=== PATIENT | male | born 2000 | race Caucasian/White ===

== ENCOUNTER 2020-09-03 20:43 | Emergency (ER) | payer OTHER, SELFPAY | END 2020-09-03 23:49 | disposition left against medical advice (07) | PROVIDERS: Emergency Provider Emergency Medicine | DX: M79.606 Pain in leg, unspecified (principal) ==

== ENCOUNTER 2020-09-06 19:52 | Emergency (ER) | payer OTHER, SELFPAY ==
[2020-09-06 20:03] VITALS: BP 125/69; PULSE 65; RESP 18; TEMP 37.4; O2SAT 100; BMI 18.8
--- NOTE | 2020-09-06 20:30 | ED.LOWEXIN ---
HPI - Extremity Injury (Lower) General Chief Complaint: Extremity Injury, Lower Stated Complaint: Knee pain Time Seen by Provider: 09/06/20 20:30 History of Present Illness HPI Narrative: Complains of left renee pain after banging his renee while skateboarding, no swelling, no weakness, no other injury Related Data Previous Rx's Medication Instructions Recorded ibuprofen 600 mg PO Q6H PRN #20 tab 09/06/20 Allergies Allergy/AdvReac Type Severity Reaction Status Date / Time No Known Allergies Allergy Verified 09/06/20 20:08 [No Known Allergies*] Review of Systems Review of Systems: Positive left anterior lower leg pain negatives are no dizziness no weakness no head injury no headache no neck pain no back pain no numbness no weakness no tingling Yes all other systems are reviewed and are negative [facility] Past Medical History Source: nursing notes reviewed Medical History (Updated 09/07/20 @ 00:00 by Background Daemon) No known health problems Social History Social History Advance Directives: No Advance Directives Information Provided: Yes Physical Exam Vital Signs: Vital Signs: Last Vital Signs Temp 99.4 F 09/06/20 20:03 Pulse 65 09/06/20 20:03 Resp 18 09/06/20 20:03 BP 125/69 09/06/20 20:03 Pulse Ox 100 09/06/20 20:03 Body Mass Index 18.8 General appearance no distress comfortable relax cooperative Head is normocephalic atraumatic Neck is supple nontender Chest wall nontender Extremities full range of motion x4 The left renee area, anterior lower leg has a small abrasion, there is mild anterior tenderness there is full range of motion in all joints he is walking with a very mild limp he can stand on 1 leg he could hop on 1 leg he can jump, no evidence of fracture Neuro no focal deficit Course Course Course Narrative: Patient believes he is up-to-date on tetanus shot will check with his primary physician Exam is consistent with a contusion no evidence of fracture or severe injury Discharge Plan Discharge Clinical Impression: Contusion of left leg Patient Disposition: Home, Self-Care Additional Instructions: No sign of broken bone or any dangerous injury You did have a small abrasion which we usually give a tetanus shot As you are not sure if you are up-to-date check with your doctor A contusion pain will usually get better within several days Prescriptions: New ibuprofen 600 mg tablet 600 mg PO Q6H PRN (Reason: pain) Qty: 20 RF: 0 Interventions: ED Discharge Assessment Last Done: 09/06/20 20:52 Discharge Date/Time: 09/06/20 20:53
== END 2020-09-06 20:53 | disposition home or self-care (01) ==
PROVIDERS: Emergency Provider Internal Medicine
DX: S80.12XA Contusion of left lower leg, initial encounter (principal); S80.812A Abrasion, left lower leg, initial encounter; Y93.51 Activity, roller skating (inline) and skateboarding; Y92.414 Local residential or business street as the place of occurrence of the external cause; Y99.9 Unspecified external cause status; X58.XXXA Exposure to other specified factors, initial encounter; Y92.9 Unspecified place or not applicable
CPT/HCPCS: 99283

== ENCOUNTER 2020-10-22 13:43 | Emergency (ER) | payer OTHER, SELFPAY ==
--- NOTE | ~2020-10-22 | XR_ITS ---
EXAMINATION: XR ELBOW, LEFT CLINICAL INFORMATION: Pain left elbow COMPARISON: None TECHNIQUE: AP, lateral, and oblique views of the left elbow. FINDINGS: There is no fracture, dislocation, or destructive process. No joint narrowing or erosive change. No visible capsular effusion. No gas tracking in the soft tissues. Bony mineralization appears normal. No periostitis. XR/XR elbow LT 2V IMPRESSION: Normal left elbow.
[2020-10-22 15:44] VITALS: BP 120/78; PULSE 50; RESP 16; TEMP 36.8; O2SAT 99; BMI 18.8
--- NOTE | 2020-10-22 16:31 | ED_ITS ---
HPI - Extremity Problem General Chief complaint: Extremity Injury, Upper Stated complaint: L ELBOW INJ Time Seen by Provider: 10/22/20 16:30 Source: patient Mode of arrival: ambulatory Limitations: no limitations History of Present Illness HPI Narrative: Patient fell while skateboarding 2 days ago complaining of pain in the left elbow, pain mostly localized in biceps area is diffuse no bony deformity able to move his arm very well no other injuries Related Data Previous Rx's Medication Instructions Recorded ibuprofen 600 mg PO Q6H PRN #20 tab 09/06/20 Allergies Allergy/AdvReac Type Severity Reaction Status Date / Time No Known Allergies Allergy Verified 09/06/20 20:08 [No Known Allergies*] Review of Systems Review of Systems: Yes all other systems are reviewed and are negative [facility] Past Medical History Medical History No known health problems Social History Social History Alcohol intake: never Smoking Status: Never smoker Use of substances other than those prescribed or required for medical reasons: No Advance Directives: No Advance Directives Information Provided: Yes Physical Exam Vital Signs: Vital Signs: Last Vital Signs Temp 98.3 F 10/22/20 15:44 Pulse 50 10/22/20 15:44 Resp 16 10/22/20 15:44 BP 120/78 10/22/20 15:44 Pulse Ox 99 10/22/20 15:44 Body Mass Index 18.8 Const: General: comfortable and no acute distress Extrem: Shoulder/upper arm images: 1. Diffuse tenderness left elbow no bony deformity range of movement is full neurovascular intact MDM - Extremity (Nontraumatic) MDM Narrative Medical decision making narrative: Patient with contusion to left elbow x-ray negative for any fracture will discharge patient home on ibuprofen Discharge Plan Discharge Clinical Impression: Contusion of elbow, left Qualifiers: Encounter type: initial encounter Qualified Code(s): S50.02XA - Contusion of left elbow, initial encounter Patient Disposition: Home, Self-Care Instructions: Contusion in Adults (ED) Additional Instructions: Ibuprofen for pain, x-rays negative for fracture, rest to the left elbow follow- up PCP if any concern Prescriptions: No Action ibuprofen 600 mg tablet 600 mg PO Q6H PRN (Reason: pain) Qty: 20 RF: 0
[2020-10-22] MEDS: Ibuprofen 600 MG TABLET PO (16:49)
== END 2020-10-22 16:53 | disposition home or self-care (01) ==
PROVIDERS: Emergency Provider Internal Medicine
DX: S50.02XA Contusion of left elbow, initial encounter (principal); M25.522 Pain in left elbow; Y93.51 Activity, roller skating (inline) and skateboarding; Y92.410 Unspecified street and highway as the place of occurrence of the external cause; Y99.9 Unspecified external cause status; Z79.899 Other long term (current) drug therapy
CPT/HCPCS: 73070; 99284

== ENCOUNTER 2022-05-14 21:46 | Emergency (ER) | payer OTHER, SELFPAY ==
--- NOTE | ~2022-05-14 | XR_ITS ---
Examination: XR hand wrist RT Indication: fall, pain x 1 month Comparison: 03/27/2019 Technique: 4 views of the right hand and wrist Findings: Bones are normal anatomic alignment with no acute fracture or dislocation seen. Carpal bones are normal alignment particular with no obvious trabecular or cortical irregularity in the region of the scaphoid bone. Overall the appearance is similar to the 2019 study XR/XR hand wrist RT Impression: No acute fracture or dislocation. Overall the appearance is similar to the 2019 study.
[2022-05-14 22:04] VITALS: BP 116/59; PULSE 60; RESP 16; TEMP 36.6; O2SAT 99; BMI 18.8
--- NOTE | 2022-05-14 22:22 | ED_ITS ---
HPI - Extremity Problem General Chief complaint: Extremity Injury, Upper Stated complaint: wrist pain, injury over a month ago Time Seen by Provider: 05/14/22 22:10 Source: patient Mode of arrival: ambulatory Limitations: no limitations History of Present Illness HPI Narrative: Right wrist pain for one month. candice fell on wrist on outstretched hands a month ago. patient states ever since he has pain on wirst on movement. patient denies any new trauma. Patient denies any headache, nausea, vomitting, redness, swelling, red streaks, fever, chills, chest pain, shortenss, weakness, or any other concerning symptoms. Related Data Previous Rx's Medication Instructions Recorded ibuprofen 600 mg tablet 600 mg PO Q6H PRN pain #20 tabs 09/06/20 naproxen 500 mg tablet 500 mg PO BID PRN pain 10 days #20 05/14/22 tabs prednisone 20 mg tablet 40 mg PO DAILY 5 days #10 tabs 05/14/22 Allergies Allergy/AdvReac Type Severity Reaction Status Date / Time No Known Allergies Allergy Verified 09/06/20 20:08 [No Known Allergies*] Review of Systems Review of Systems: Right wrist pain Yes all other systems are reviewed and are negative [facility] Past Medical History Medical History No known health problems Social History Social History Alcohol intake: never Advance Directives: No Advance Directives Information Provided: No Physical Exam Vital Signs: Vital Signs: Last Vital Signs Temp 97.8 F 05/14/22 22:04 Pulse 60 05/14/22 22:04 Resp 16 05/14/22 22:04 BP 116/59 L 05/14/22 22:04 Pulse Ox 99 05/14/22 22:04 O2 Del Method 05/14/22 22:04 BMI result Body Mass Index 18.8 Const: General: cooperative, healthy appearing, comfortable, no acute distress, well developed, alert, awake and Physically active Orientation/consciousness: oriented to person, oriented to place, oriented to time and patient oriented x3 HEENT: Head: Yes normal to inspection, Yes No palpable skull fracture present, Yes normocephalic, Yes atraumatic and No abrasion Eyes: General: appearance normal, both eyes and all related structures Neck: Neck: Yes normal visual inspection, Yes full ROM, Yes no lymphadenopathy, Yes no meningeal signs, Yes trachea midline, Yes supple, No anterior neck swelling and No tender Chest: Chest palpation & inspection: normal inspection of the chest and normal palpation of entire chest wall Resp: Effort & Inspection: normal respiratory effort and able to speak in complete sentences Auscultation: clear to auscultation bilaterally Cardio: Jugular venous distension: no JVD Heart sounds: S1 normal heart sound present and S2 normal heart sound present GI: Inspection: Yes normal to inspection and No abdominal wall ecchymosis Palpation (GI): Soft to palpation, not firm, nontender, no guarding and not rigid : General: No CVA tenderness and Yes no CVA tenderness Back/Spine/Pelvis: Back: no CVA tenderness, No CVA tenderness and No back tenderness Skin: General skin exam: no rashes or lesions noted and elasticity normal Neuro: General: oriented to person, oriented to place, oriented to time, patient oriented x3, gait normal, tone normal, Normal light touch and pain sensation, no meningeal signs, no focal motor deficits and CN's II-XI intact bilaterally Extrem: General: Yes normal to inspection and Yes full ROM Hand/finger images: 1. Tenderness on palpation. negative for ecchymosis, rednes s, swelling, red streakes, fever, or chills. MOtor, neuro, and vascular exam is intact. Psych: Appearance: grossly normal, well kempt and not disheveled Course Course Course Narrative: Xray ordered Reevaluation(s) Reevaluation #1: Pre negative for fracture. Patient placed in cock-up splint and told to follow- up with primary care or orthopedic for MRI. Time: 23:04 Discharge Plan Discharge Clinical Impression: Sprain and strain of wrist Patient Disposition: Home, Self-Care Instructions: Sprain (ED), Wrist Sprain (ED) Additional Instructions: Yet x-rays came back normal. Follow-up with primary care or orthopedic if he still having pain. Return to the ED immediately for any swelling, redness, blue black discoloration, red streaks, numbness/tingling, or any other concerning symptoms. Prescriptions: New naproxen 500 mg tablet 500 mg PO BID PRN (Reason: pain) 10 Days Qty: 20 0RF prednisone 20 mg tablet 40 mg PO DAILY 5 Days Qty: 10 0RF No Action ibuprofen 600 mg tablet 600 mg PO Q6H PRN (Reason: pain) Qty: 20 0RF [place]: [facility] [place] [facility] [place] Group] (Wrist sprain. may need MRI) Stand Alone Forms: Work/School Release Interventions: ED Discharge Assessment Last Done: 05/15/22 00:58 Discharge Date/Time: 05/15/22 00:58 Print Language: Danish
== END 2022-05-15 00:58 | disposition home or self-care (01) ==
PROVIDERS: Emergency Provider Emergency Medicine
DX: M25.531 Pain in right wrist (principal); S63.501D Unspecified sprain of right wrist, subsequent encounter; S66.911D Strain of unspecified muscle, fascia and tendon at wrist and hand level, right hand, subsequent encounter; W19.XXXD Unspecified fall, subsequent encounter
CPT/HCPCS: 73110; 73130; 99282; 99283

== ENCOUNTER 2022-08-01 21:23 | Emergency (ER) | payer OTHER, SELFPAY ==
--- NOTE | ~2022-08-01 | XR_ITS ---
Examination: XR hand wrist RT Indication: injury,pain Comparison: 05/14/2022 Technique: 3 views of the right hand and wrist Findings: Bones are in normal anatomic alignment. No acute fracture or dislocation seen. No bony degenerative or destructive changes. No radiopaque foreign body or soft tissue gas. XR/XR hand wrist RT Impression: No acute fracture or dislocation.
[2022-08-01 21:39] VITALS: BP 126/77; PULSE 69; RESP 18; TEMP 37.1; O2SAT 98; BMI 18.0
--- NOTE | 2022-08-01 23:34 | ED.EXTPRO ---
HPI - Extremity Problem General Chief complaint: Extremity Injury, Upper <ASHLEY Napoles Last Filed: 08/01/22 23:47> Stated complaint: bump in head/ wrist pain <ASHLEY Napoles Last Filed: 08/01/22 23:47> Time Seen by Provider: 08/01/22 22:52 <ASHLEY Napoles Last Filed: 08/01/22 23:47> Source: patient <ASHLEY Napoles Last Filed: 08/01/22 23:47> Mode of arrival: ambulatory <ASHLEY Napoles Last Filed: 08/01/22 23:47> Limitations: no limitations <ASHLEY Napoles Last Filed: 08/01/22 23:47> History of Present Illness HPI Narrative: This is a 22-year-old male no significant medical history presenting with wrist pain since February and a lump on his head for the past year that comes and goes. 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 He reports that he has 1 lump on his head that is always present and at times he gets other smaller bumps he tells me his mom gets this with certain products and gets a rash he thinks this may be the same thing. He tells me it does not hurt, he just knows it is there and wants to get it checked out. Patient denies headache, vision changes, dizziness, weakness, nausea, vomiting, fevers, chills, chest pain, shortness of breath, abdominal pain, numbness and tingling. Has not seen orthopedics as PCP or Dermatology for any of these concerns. <ASHLEY Napoles Last Filed: 08/01/22 23:47> Related Data Home medications: Previous Rx's Medication Instructions Recorded ibuprofen 600 mg tablet 600 mg PO Q6H PRN pain #20 tabs 09/06/20 naproxen 500 mg tablet 500 mg PO BID PRN pain 10 days #20 05/14/22 tabs prednisone 20 mg tablet 40 mg PO DAILY 5 days #10 tabs 05/14/22 <ASHLEY Napoles - Last Filed: 08/01/22 23:47> Allergies/Adverse reactions: Allergies Allergy/AdvReac Type Severity Reaction Status Date / Time No Known Allergies Allergy Verified 08/01/22 21:44 [No Known Allergies*] <ASHLEY Napoles - Last Filed: 08/01/22 23:47> Review of Systems Review of Systems: Constitutional : No Weight loss, No Fever, No Chills, No Fatigue, No Malaise ENT/Mouth : No sore throat, No Rhinorrhea Eyes: No Eye Pain, No Swelling, No Redness Cardiovascular : No Chest Pain, No SOB, No Dyspnea on Exertion, No Orthopnea, No Edema, No Palpitations Respiratory : No Cough, No Sputum, No Wheezing Gastrointestinal : No Nausea, No Vomiting, No Diarrhea, No Constipation, No abdominal Pain, No Hematochezia, No Melena Genitourinary : No Dysuria, No Urinary Frequency, No Hematuria, Musculoskeletal : + joint pain, No Myalgias, No Joint Swelling Skin : No Skin Lesions, No rash Neuro : No Weakness, No Numbness, No Dizziness, No Headache Psych : No Anxiety/Panic, No Depression All other systems reviewed and are negative <ASHLEY Napoles - Last Filed: 08/01/22 23:47> Yes all other systems are reviewed and are negative <ASHLEY Napoles - Last Filed: 08/01/22 23:47> PMF[facility] Past Medical History Attestation statement: The following information was validated with the patient. <ASHLEY Napoles - Last Filed: 08/01/22 23:47> Source: old records reviewed and nursing notes reviewed <ASHLEY Napoles - Last Filed: 08/01/22 23:47> Medical History: Medical History No known health problems <ASHLEY Napoles Last Filed: 08/01/22 23:47> Social History Social History: Social History Alcohol intake: never Advance Directives: No Advance Directives Information Provided: Yes <ASHLEY Napoles - Last Filed: 08/01/22 23:47> Physical Exam Vital Signs: Vital Signs: Last Vital Signs Temp 98.8 F 08/01/22 21:39 Pulse 69 08/01/22 21:39 Resp 18 08/01/22 21:39 BP 126/77 08/01/22 21:39 Pulse Ox 98 08/01/22 21:39 O2 Del Method 08/01/22 21:39 BMI result Body Mass Index 18.0 vss <ASHLEY Napoles - Last Filed: 08/01/22 23:47> Vital Signs: Last Vital Signs Temp 98.8 F 08/01/22 21:39 Pulse 69 08/01/22 21:39 Resp 18 08/01/22 21:39 BP 126/77 08/01/22 21:39 Pulse Ox 98 08/01/22 21:39 O2 Del Method 08/01/22 21:39 BMI result Body Mass Index 18.0 <Chepe Kaufman MD - Last Filed: 08/01/22 23:52> Appearance: Alert.? Oriented X3.? No acute distress.? Head: Normocephalic, atraumatic, no step-offs or deformities Eyes: Pupils equal, round and reactive to light.? CVS: Normal heart rate and rhythm.? Pulses normal.? Respiratory: No respiratory distress.? Breath sounds normal.? Abdomen: Soft and nontender.? Skin: Skin warm and dry.? Normal skin color.? Normal skin turgor.? Extremities:5/5 strength to bilateral upper and lower extremities. 2+ radial pulses equal bilateral. Capillary refill less than 2 seconds equal bilateral. No wrist drop. Full range of motion pain-free to bilateral wrists and fingers. No pain overlying the anatomical snuffbox bilaterally Neuro: Oriented X 3.? No motor deficit.? No sensory deficit. CN 2-12 intact <ASHLEY Napoles - Last Filed: 08/01/22 23:47> Course Reevaluation(s) Reevaluation #1: X-ray of hand/wrist on the right with no acute fractures or dislocations. Wanted to provide a Velcro volar splint for comfort however patient tells me has been at home and he will begin to wear it. I did advise him to follow-up with his PCP for bumps on head he will likely require Dermatology follow-up there is no evidence of abscess on his head at this time therefore no further intervention. Will have them follow-up with orthopedics. Educated patient on diagnosis and treatment plan, answered all question, patient verbalizes understanding. At this time patient will be discharged home, advised to return with new or worsening symptoms. Educated on worrisome signs and symptoms and when to return. At this time I feel comfortable discharge home. <ASHLEY Napoles - Last Filed: 08/01/22 23:47> Time: 23:42 <ASHLEY Napoles - Last Filed: 08/01/22 23:47> Medical Decision Making Medical Decision Making [facility] Narrative: [id number] 22-year-old male presents with complaints of bump on head for the past year and right wrist injury that occurred in February still bothering him. Physical exam essentially benign. Likely sprain/strain, unlikely fracture, dislocation, no signs of neurovascular compromise or threatened limb. Unlikely acute ligament or tendon tear. I was unable to identify any bumps on patient's head patient tells me that some of them, go, this could be contact dermatitis or psoriasis or sebaceous cyst. Unlikely stroke, posterior stroke Plan at this time discharge patient home with Ortho follow-up. <ASHLEY Napoles - Last Filed: 08/01/22 23:47> Differential Diagnosis Differential Diagnoses: The differential diagnosis associated with the presentation includes <ASHLEY Napoles - Last Filed: 08/01/22 23:47> Likely sprain/strain, unlikely fracture, dislocation, no signs of neurovascular compromise or threatened limb. Unlikely acute ligament or tendon tear. I was unable to identify any bumps on patient's head patient tells me that some of them, go, this could be contact dermatitis or psoriasis or sebaceous cyst. Unlikely stroke or posterior stroke <ASHLEY Napoles Last Filed: 08/01/22 23:47> Admission/Observation Consideration of admission/observation: Escalation of care including admission/observation considered <ASHLEY Napoles Last Filed: 08/01/22 23:47> Independent Interpretation I performed an independent interpretation of an: Plain X-Ray (Unremarkable) <ASHLEY Napoles - Last Filed: 08/01/22 23:47> Core Measures AMI core measures followed: Yes <ASHLEY Napoles - Last Filed: 08/01/22 23:47> Measure exclusions: not indicated <ASHLEY Napoles - Last Filed: 08/01/22 23:47> Attestation Attending Attestation: I reviewed DICE DEALER/PA/Resident note, assessment and plan. I agree with the documentation, assessment and plan unless otherwise stated. <Chepe Kaufman MD - Last Filed: 08/01/22 23:52> Critical Care Time Critical Care Time Critical Care Time: No <ASHLEY Napoles - Last Filed: 08/01/22 23:47> Discharge Plan Discharge Clinical Impression: Sprain and strain of wrist, Head lump <ASHLEY Napoles - Last Filed: 08/01/22 23:47> Patient Disposition: Home, Self-Care <ASHLEY Napoles - Last Filed: 08/01/22 23:47> Instructions: Wrist Injury (ED), Sprain (ED) <ASHLEY Napoles - Last Filed: 08/01/22 23:47> Additional Instructions: Take your medications as prescribed. If you were prescribed antibiotics today, it is important that you take your medication to their entirety, do not skip any doses, do not finish them early. Follow-up with your primary care provider this week. Please follow-up with the orthopedic team. Please wear wrist splint as indicated. Rest, ice, compress and elevate extremity. Return to the emergency department with new or worsening symptoms. Such as fevers, chills, chest pain, shortness of breath, nausea, vomiting, dizziness, headache, vision changes, lethargy In case of emergency call 911 <ASHLEY Napoles - Last Filed: 08/01/22 23:47> Prescriptions: No Action ibuprofen 600 mg tablet 600 mg PO Q6H PRN (Reason: pain) Qty: 20 0RF naproxen 500 mg tablet 500 mg PO BID PRN (Reason: pain) 10 Days Qty: 20 0RF prednisone 20 mg tablet 40 mg PO DAILY 5 Days Qty: 10 0RF <ASHLEY Napoles - Last Filed: 08/01/22 23:47> Referrals: [facility] [place] [facility] [Provider Group] - 2 days Sarah Guerra MD [Primary Care Provider] - 2 days <ASHLEY Napoles - Last Filed: 08/01/22 23:47> Stand Alone Forms: Work/School Release <ASHLEY Napoles - Last Filed: 08/01/22 23:47>
== END 2022-08-01 23:58 | disposition home or self-care (01) ==
PROVIDERS: Emergency Provider Emergency Medicine; PCP Pediatrics
DX: R22.0 Localized swelling, mass and lump, head (principal); S63.501A Unspecified sprain of right wrist, initial encounter; S66.911A Strain of unspecified muscle, fascia and tendon at wrist and hand level, right hand, initial encounter; V00.131A Fall from skateboard, initial encounter; Y93.51 Activity, roller skating (inline) and skateboarding; Y92.414 Local residential or business street as the place of occurrence of the external cause; Y99.9 Unspecified external cause status
CPT/HCPCS: 73110; 73130; 99282; 99283

== ENCOUNTER 2022-08-16 09:39 | Outpatient (REF) | payer OTHER, SELFPAY | END 2022-08-16 09:40 | disposition home or self-care (01) | LOC: HO.HOSX 09:39 | PROVIDERS: Visit Provider Orthopaedic Surgery | DX: Z13.89 Encounter for screening for other disorder (principal) ==

== ENCOUNTER 2023-09-13 14:15 | Outpatient (REF) | payer MEDICAID, SELFPAY ==
--- NOTE | ~2023-09-13 | US_ITS ---
EXAMINATION: US SCROTUM CLINICAL INFORMATION: Dysuria, testicular pain, left worse than right.. COMPARISON: None available. TECHNIQUE: A sonogram of the scrotum was performed assessing arellano-scale appearance and color Doppler flow. Spectral Doppler analysis of the arterial and venous flow were performed in the testes bilaterally. FINDINGS: RIGHT: Right testicle measures 4.0 x 2.1 x 2.9 cm, volume 12.4 mL. No focal testicular parenchymal lesions are visualized. Spectral Doppler analysis of the arterial and venous flow is normal in the right testis. Right epididymal head is normal in size. No right hydrocele or varicocele is seen. Right epididymal Doppler flow is normal. LEFT: Left testicle measures 3.8 x 2.0 x 2.5 cm, volume 9.8 mL. No focal testicular parenchymal lesions are visualized. Spectral Doppler analysis of the arterial and venous flow is normal in the left testis. Left epididymal head is normal in size. Simple appearing epididymal head cysts measuring up to 0.2 cm No left hydrocele or varicocele is seen. Left epididymal Doppler flow is normal. US/US scrotum IMPRESSION: Simple appearing left-sided epididymal head cysts, otherwise unremarkable examination.
== END 2023-09-13 14:16 | disposition home or self-care (01) ==
LOC: HO.US 14:15
PROVIDERS: PCP Pediatrics; Visit Provider Family Medicine
DX: N50.812 Left testicular pain (principal); N50.811 Right testicular pain; R30.0 Dysuria
CPT/HCPCS: 76870

== ENCOUNTER 2023-11-03 18:49 | Emergency (ER) | payer MEDICAID, SELFPAY ==
--- NOTE | ~2023-11-03 | XR_ITS ---
EXAMINATION: XR HAND/WRIST, RIGHT CLINICAL INFORMATION: Fall with radial pain COMPARISON: 08/01/2022 TECHNIQUE: Four views of the right hand and wrist. FINDINGS: The bones and soft tissues are normal. No fracture. Alignment is anatomic. Joint spaces are maintained. No erosions or soft tissue calcifications. XR/XR hand wrist RT IMPRESSION: Normal radiographs of the hand and wrist.
--- NOTE | 2023-11-03 19:21 | ED.UPPEXIN ---
HPI - Extremity Injury (Upper) General Chief Complaint: Extremity Injury, Upper Stated Complaint: rt wrist inj/skateboarding Time Seen by Provider: 11/03/23 20:10 Source: patient, RN notes reviewed and old records reviewed Mode of arrival: ambulatory Limitations: no limitations History of Present Illness HPI narrative: 23-year-old male presents for evaluation of a right wrist injury Patient was skateboarding when he fell onto an outstretched right hand He landed on the ulnar side of his right wrist on the concrete Denies hitting his head or losing consciousness He has not on any anticoagulation He reports he has good range of motion but ?it hurts to move my thumb. ? He has some mild pain radiating up his right forearm Denies any elbow or shoulder pain Related Data Previous Rx's ?Medication ?Instructions ?Recorded ibuprofen 600 mg tablet 600 mg PO Q6H PRN pain #20 tabs 09/06/20 naproxen 500 mg tablet 500 mg PO BID PRN pain 10 days #20 05/14/22 tabs prednisone 20 mg tablet 40 mg (2 x 20 mg) PO DAILY 5 days 05/14/22 #10 tabs Allergies Allergy/AdvReac Type Severity Reaction Status Date / Time No Known Allergies Allergy Verified 11/03/23 19:23 [No Known Allergies*] Review of Systems Constitutional: Constitutional: Denies body ache(s), Denies chills, Denies fever(s) and Denies headache(s) ENT: Denies headache(s) Cardiovascular: Cardiovascular: Denies chest pain and Denies dyspnea Respiratory: Respiratory: Denies cough and Denies dyspnea Gastrointestinal: Gastrointestinal: Denies abdominal pain, Denies nausea and Denies vomiting Musculoskeletal: Musculoskeletal: Reports arthralgias, Reports joint swelling and Reports limited range of motion Integumentary/Breasts: Skin/Breast: Denies rash Neurologic: Denies headache(s) [facility] Past Medical History Medical History No known health problems Social History Social History Alcohol intake: never Advance Directives: No Advance Directives Information Provided: No Physical Exam Vital Signs: Vital Signs: Last Vital Signs Temp 98 F 11/03/23 20:48 Pulse 60 11/03/23 20:48 Resp 18 11/03/23 20:48 BP 110/68 11/03/23 20:48 Pulse Ox 99 11/03/23 20:48 O2 Del Method Room Air 11/03/23 20:48 BMI result Body Mass Index 18.6 Const: General: healthy appearing, comfortable, no acute distress, alert and awake Nutritional Appearance: well nourished Orientation/consciousness: patient oriented x3 HEENT: Head: Yes normocephalic and Yes atraumatic Eyes: Eyelids: Yes eyelids normal Conjunctivae: conjunctivae normal Sclerae: sclerae normal Corneas: corneas normal Pupils: Equal, round and reactive pupils present EOM: EOMs intact bilaterally Neck: Neck: Yes full ROM Resp: Effort & Inspection: normal respiratory effort, able to speak in complete sentences and not labored Skin: General skin exam: elasticity normal Neuro: General: patient oriented x3 Cranial nerves: Yes Equal, round and reactive pupils present and Yes Bilaterally intact EOM present Cognition (Neuro): normal cognition Extrem: Other: Patient has mild tenderness over the right distal ulna without deformity. He has good range of motion with flexion and extension of the right wrist. There is no scaphoid tenderness. He has good range of motion of all fingers of the right hand. There is no right elbow tenderness and has good range of motion of the right elbow. Course Course Course Narrative: This is a rapid medical exam performed by Lalito Levin NP: Additional HPI, ROS, PE not included below will be deferred to primary provider. Patient is a 23-year-old male presenting to the ED with complaint of right wrist wrist pain after falling onto his right forearm while skateboarding last night. States he landed on ulnar aspect of arm. Some tingling to wrist and fingers. Arrives with wrist brace on. Plan: x-ray Medical Decision Making Medical Decision Making MDM Narrative: 23-year-old male presents for evaluation of right wrist injury. He appears to have a minor injury. On my review, x-rays are negative, awaiting radiology confirmation Differential Diagnosis Differential Diagnoses: The differential diagnosis associated with the presentation includes Right wrist sprain Right wrist fracture Contusion Wrist dislocation Independent Interpretation I performed an independent interpretation of an: Plain X-Ray (No obvious fracture of the right wrist) Radiology Impression Discussion of test interpretation with radiology: I have reviewed the radiologist's reading. Radiologist Impression: XR/XR hand wrist RT IMPRESSION: Normal radiographs of the hand and wrist. Discharge Plan Discharge Clinical Impression: Sprain and strain of wrist Patient Disposition: Home, Self-Care Instructions: Wrist Sprain (ED) Additional Instructions: Your x-ray was negative for fractures. You have a sprain of your right wrist Use ibuprofen/Tylenol for pain Apply ice to the area every 4 hours for 10-15 minutes Follow-up your primary doctor Prescriptions: No Action ibuprofen 600 mg tablet 600 mg PO Q6H PRN (Reason: pain) Qty: 20 0RF naproxen 500 mg tablet 500 mg PO BID PRN (Reason: pain) 10 Days Qty: 20 0RF prednisone 20 mg tablet 40 mg PO DAILY 5 Days Qty: 10 0RF Interventions: ED Discharge Assessment Last Done: 11/03/23 20:48 Discharge Date/Time: 11/03/23 20:49 Print Language: [place] Citizen
[2023-11-03 19:22] VITALS: BP 109/67; PULSE 58; RESP 14; TEMP 36.6; O2SAT 99; BMI 18.6
[2023-11-03 20:23] VITALS: BP 110/68; PULSE 60; RESP 18; TEMP 36.6; O2SAT 99
[2023-11-03 20:48] VITALS: BP 110/68; PULSE 60; RESP 18; TEMP 36.6; O2SAT 99
== END 2023-11-03 20:49 | disposition home or self-care (01) ==
PROVIDERS: Emergency Provider Emergency Medicine; PCP Family Medicine
DX: S63.501A Unspecified sprain of right wrist, initial encounter (principal); M25.531 Pain in right wrist; W01.0XXA Fall on same level from slipping, tripping and stumbling without subsequent striking against object, initial encounter; Y93.9 Activity, unspecified; Y92.9 Unspecified place or not applicable; Y99.8 Other external cause status
CPT/HCPCS: 73110; 73130; 99282; 99283

== ENCOUNTER 2024-01-09 12:09 | Outpatient (REF) | payer MEDICAID, SELFPAY ==
[2024-01-09 12:55] LABS: MANUAL DIFF FLAG NO
[2024-01-09 13:06] LABS: Basophils Absolute Auto 0.1 X10*3/uL (0.0-0.2); Basophils Percent Auto 1.1 % (0-2); Eosinophils Absolute Auto 0.5 X10*3/uL (0.0-0.4); Hematocrit 45.8 % (42.0-52.0); Hemoglobin 15.4 g/dl (14.0-18.0); Imm Gran Abs Auto 0.05 X10*3/uL (0.00-0.03); Imm Gran Pct Auto 0.8 % (0.0-0.4); Lymphocytes Absolute Auto 1.7 X10*3/uL (1.2-4.9); Lymphocytes Percent Auto 27.3 % (20-40); Mean Corpuscular HGB Conc 33.6 g/dl (31.0-36.0); Mean Corpuscular Hemoglobin 29.6 pg (27.0-33.0); Mean Corpuscular Volume 87.9 fL (80.0-98.0); Mean Platelet Volume 9.2 fL (9.4-12.4); Monocytes Absolute Auto 0.8 X10*3/uL (0.1-1.2); Monocytes Percent Auto 12.1 % (2-11); Neutrophils Absolute Auto 3.2 x10*3/uL (2.0-8.3); Neutrophils Percent Auto 50.7 % (45-73); Platelet Count 258 X10*3/uL (160-400); Red Blood Count 5.21 X10*6/uL (4.60-5.80); Red Cell Distribution Width 12.7 % (11.0-16.0); White Blood Count 6.3 X10*3/uL (4.8-10.8)
[2024-01-09 13:15] LABS: Appearance Urine Clear; Color Urine Yellow; Glucose Urine UA Negative (Negative); Leukocyte Esterase Urine Negative (Negative); Nitrite Urine Negative (Negative); Urine Blood Negative (Negative); Urine Ketones Negative (Negative); Urine Protein Negative (Neg-Trace)
[2024-01-09 13:19] LABS: Bacteria Urine None Seen (None Seen); Hyaline Casts Urine 0-2 /LPF (0-2); RBC Urine 0-2 /HPF (0-2); Squamous Epithelial Cell Urine 0-2 /HPF (0-2); WBC Urine 0-5 /HPF (0-5)
[2024-01-09 13:52] LABS: Alanine Aminotransferase 100 U/L (0-40); Albumin Level 4.4 g/dL (3.5-5.0); Alkaline Phosphatase 107 U/L (39-117); Anion Gap 12 (12-20); Aspartate Amino Transferase 46 U/L (5-37); Bilirubin Total 0.5 mg/dL (0.0-1.0); Blood Urea Nitrogen 11 mg/dL (9-16); Calcium 9.7 mg/dL (8.4-10.2); Carbon Dioxide 28 mmol/L (22-29); Chloride 105 mmol/L (96-108); Estimated Glomerular Filt Rate > 60; Glucose Random 66 mg/dL (60-115); Sodium 141 mmol/L (135-145); Total Protein 7.3 g/dL (6.5-8.0)
[2024-01-09 14:02] LABS: TSH reflex Free T4 1.35 uIU/mL (0.32-4.0)
[2024-01-09 14:34] LABS: CT PCR NOT DETECTED (Not Detect.); NG PCR NOT DETECTED (Not Detect.)
[2024-01-10 04:01] LABS: Syphilis Screen Nonreactive (Nonreactive)
[2024-01-10 04:15] LABS: HBS Num1 6.56 mIU/mL (0-7.99); HBsAGNum1 0.26 S/CO (0.00-0.99); HIV AB/AG Nonreactive (Nonreactive); HIV Num 1 0.05 S/CO (0.00-0.99); Hepatitis B Core Antibody Nonreactive (Nonreactive); Hepatitis B Surface Antigen Negative (Negative); ~HepC Num1 0.09 S/CO (0.00-0.79); ~Hepatitis B Surface Antibody NONREACTIVE (Nonreactive); ~Hepatitis C Antibody Nonreactive (Nonreactive)
== END 2024-01-09 12:10 | disposition home or self-care (01) ==
LOC: HO.HHCL 12:09
PROVIDERS: Visit Provider Family Medicine
DX: Z00.00 Encounter for general adult medical examination without abnormal findings (principal); R30.0 Dysuria; R10.32 Left lower quadrant pain
CPT/HCPCS: 36415; 80053; 81001; 84443; 85025; 86704; 86706; 86780; 86803; 87340; 87389; 87491; 87591

== ENCOUNTER 2024-02-09 08:25 | Outpatient (AMB) | payer MEDICAID, SELFPAY ==
--- NOTE | 2024-02-09 10:43 | A.OFFVIS_ITS ---
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 Patient reports that he was skateboarding down a rail when he fell landing on his wrist. He states his pain has gotten worse over time and is located around his wrist. His pain increases with activities that require use of hand such as writing. States numbness and tingling that radiates to his elbow if he accidentally bumps his wrist. He was seen by his PCP who referred patient to orthopedics. 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 On that date, the patient reports that he fell off his skateboard onto an outstretched right hand, and since then he has been ex periencing significant pain in his right wrist, particularly on the dorsal and ulnar aspect of the wrist. Patient reports that for approximately 1 week, he experienced numbness in the right hand, but this has since then has not returned. Today, the patient reports that he does feel that his symptoms have improved significantly, but he does report that he does experience discomfort still in this ulnar and dorsal aspect of the right wrist, particularly with movement and lifting. Patient has no other acute complaints or concerns at this time. 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 Neuro: Sensation to all digits of the right hand intact. Vascular: Cap refill brisk Pain: Patient reports tenderness to palpation of the right dorsal ulnar styloid and ulnar wrist Patient reports no other tenderness to palpation at this time No anatomical snuffbox tenderness ROM: Wrist flexion and extension full and intact Patient is able to make a closed fist Good finger cross Patient reports mild discomfort in the ulnar wrist with abduction, as well as with resisted extension Skin: No lacerations or abrasions. General: No ecchymosis, erythema, or evidence of infection. Psych: Appears grossly normal Affect normal Attitude cooperative Results Reviewed Results Reviewed: X-rays obtained in the office today and independently reviewed by me, Indra Turcios PA-C, demonstrate no fracture or acute bony abnormality. Assessment & Plan Assessment & Plan (1) Extensor carpi ulnaris tendinitis: Code(s): M77.8 - Other enthesopathies, not elsewhere classified Category: Medical Plan 1. Extensor carpi ulnaris tendinitis Date of injury 11/02/2023 Patient is educated about this condition and the typical recovery course Patient is a referred to occupational therapy for evaluation and treatment of extensor carpi ulnaris tendinitis Patient is amenable to this plan Patient inquires if he should wear a brace, and I advised him that he should not wear a brace and should work on range of motion even while not with OT Patient will follow-up as needed with any acute concerns Orders: Orders XR wrist RT w scaphoid Today M79.641 - Pain in right hand OT Evaluation and Treatment Today M77.8 - Other enthesopathies, not elsewhere classified Medications: Discontinued ibuprofen Discontinued Reason: Patient no longer taking 600 mg PO Q6H PRN 20 tabs 0RF pain naproxen Discontinued Reason: Patient no longer taking 500 mg PO BID 10 days PRN 20 tabs 0RF pain prednisone Discontinued Reason: Patient no longer taking 40 mg (2 x 20 mg) PO DAILY 5 days 10 tabs 0RF Coding Level of Care Code New Pt Level 3 (43282) Diagnoses Extensor carpi ulnaris tendinitis M77.8
[2024-02-09 10:47] VITALS: BMI 18.5
== END 2024-02-09 11:25 | disposition home or self-care (01) ==
PROVIDERS: PCP Family Medicine
DX: M77.8 Other enthesopathies, not elsewhere classified (principal); V00.131A Fall from skateboard, initial encounter
CPT/HCPCS: 99203

== ENCOUNTER 2024-02-09 08:41 | Outpatient (REF) | payer MEDICAID, SELFPAY ==
--- NOTE | ~2024-02-09 | XR_ITS ---
EXAMINATION: XR WRIST, RIGHT CLINICAL INFORMATION: Right wrist pain. COMPARISON: Most recent right hand and wrist radiograph dated 11/03/2023. TECHNIQUE: PA, lateral, oblique, and scaphoid views of the right wrist. FINDINGS: The bones and soft tissues are normal. No fracture. Alignment is anatomic with normal joint spaces. No erosions or abnormal soft tissue calcifications. XR/XR wrist RT w scaphoid IMPRESSION: Unremarkable examination. Electronically signed by: Gabriel Burch MD 03/06/2024 08:50 PM EDT
== END 2024-02-09 08:42 | disposition home or self-care (01) ==
LOC: HO.HOSX 08:41
PROVIDERS: PCP Family Medicine
DX: M79.641 Pain in right hand (principal)
CPT/HCPCS: 73110; 99212

== ENCOUNTER 2024-04-10 12:26 | Outpatient (REF) | payer MEDICAID, SELFPAY ==
[2024-04-10 13:25] LABS: MANUAL DIFF FLAG NO
[2024-04-10 13:36] LABS: Basophils Absolute Auto 0.1 X10*3/uL (0.0-0.2); Basophils Percent Auto 1.1 % (0-2); Eosinophils Absolute Auto 0.8 X10*3/uL (0.0-0.4); Eosinophils Percent Auto 11.2 % (0-4); Hematocrit 46.2 % (42.0-52.0); Hemoglobin 15.8 g/dl (14.0-18.0); Imm Gran Abs Auto 0.03 X10*3/uL (0.00-0.03); Imm Gran Pct Auto 0.4 % (0.0-0.4); Lymphocytes Absolute Auto 1.9 X10*3/uL (1.2-4.9); Lymphocytes Percent Auto 27.5 % (20-40); Mean Corpuscular HGB Conc 34.2 g/dl (31.0-36.0); Mean Corpuscular Hemoglobin 29.8 pg (27.0-33.0); Mean Platelet Volume 9.5 fL (9.4-12.4); Monocytes Absolute Auto 0.6 X10*3/uL (0.1-1.2); Monocytes Percent Auto 8.5 % (2-11); Neutrophils Absolute Auto 3.6 x10*3/uL (2.0-8.3); Neutrophils Percent Auto 51.3 % (45-73); Platelet Count 261 X10*3/uL (160-400); Red Blood Count 5.31 X10*6/uL (4.60-5.80); Red Cell Distribution Width 12.6 % (11.0-16.0)
[2024-04-10 14:22] LABS: Anion Gap 10 (12-20); Blood Urea Nitrogen 13 mg/dL (9-16); Calcium 9.7 mg/dL (8.4-10.2); Carbon Dioxide 31 mmol/L (22-29); Chloride 107 mmol/L (96-108); Estimated Glomerular Filt Rate > 60; Glucose Random 61 mg/dL (60-115); Potassium 3.7 mmol/L (3.3-5.1); Sodium 144 mmol/L (135-145)
== END 2024-04-10 12:27 | disposition home or self-care (01) ==
LOC: HO.HHCL 12:26
PROVIDERS: Visit Provider Family Medicine
DX: R53.83 Other fatigue (principal)
CPT/HCPCS: 36415; 80048; 85025

== ENCOUNTER 2024-06-12 15:32 | Outpatient (REF) | payer MEDICAID, SELFPAY ==
[2024-06-12] MEDS: iohexoL 350 MG/ML 100 ML INFUS..BTL IV (16:41)
== END 2024-06-12 15:33 | disposition home or self-care (01) ==
LOC: HO.CT 15:32
PROVIDERS: PCP Family Medicine; Visit Provider Family Medicine
DX: R22.1 Localized swelling, mass and lump, neck (principal)
CPT/HCPCS: 70491; Q9967

== ENCOUNTER 2024-07-23 14:25 | Outpatient (REF) | payer MEDICAID, SELFPAY ==
--- NOTE | ~2024-07-23 | US_ITS ---
CLINICAL HISTORY: right side neck cyst Examination: Limited soft tissue ultrasound Indication: Right neck cyst Comparison: None. Findings: In the level 2 region of the right, there is an ovoid hypoechoic wider than tall and smoothly marginated vascular structure measuring 1.4 x 1.0 x 1.3 cm. No definite tract to the skin surface. Adjacent to this, there is a 5 mm similar-appearing structure. Impression: Probable infected sebaceous/epidermal inclusion cyst versus abnormal lymph node. This would be amenable to sampling if clinically indicated. Correlation for signs and/or symptoms of infection or inflammation. This document has been electronically signed by: Jack Ziegler MD on 07/24/2024 11:55:39
--- OUTSIDE RECORDS SUMMARY | 2024-07-23 15:19 | XMS_ITS | Encounter Summary ---
Author Organization [facility] Address [address] [place] [id number] Phone Care Team Providers Care Case Management Specialist Name Role Phone Sarah Guerra MD Primary Care Provider [phone] Encounter Details Date Type Department Care Team (Late st Contact Info) Description 02/09/2017 Conversion Encounter [facility] [place] [address] [place] [address] Social History Tobacco Use Types Packs/Day Years Used Date Smoking Tobacco: Never Comments:Never smoker Sex and Gender Information Value Date Recorded Sex Assigned at Not on file Legal Sex Male 5:09 PM EDT Gender Identity Not on file Sexual Orientation Not on file documented as of this encounter Plan of Treatment Not on file documented as of this encounter Visit Diagnoses Not on filedocumented in this encounter Care Teams Case Management Specialist Relationship Specialty Start Date End Date Sarah Guerra MD [address] [place] [address] PCP - General 02/03/17 07/14/22 documented as of this encounter
--- OUTSIDE RECORDS SUMMARY | 2024-07-23 15:19 | XMS_ITS | Encounter Summary ---
Author Organization [facility] Address [address] [place] [phone] Phone Care Team Providers Care System Programmer Name Role Phone Sarah Guerra MD Primary Care Provider [phone] Encounter Details Date Type Department Care Team (Late st Contact Info) Description 12/12/2013 Documentation [facility] [place] Family Medicine [address] [place], [place] [phone] Family Medicine, Physician [address] [place] [address] Social History Tobacco Use Types Packs/Day Years Used Date Smoking Tobacco: Never Assessed Sex and Gender Information Value Date Recorded Sex Assigned at Not on file Legal Sex Male 5:09 PM EDT Gender Identity Not on file Sexual Orientation Not on file documented as of this encounter Plan of Treatment Not on file documented as of this encounter Visit Diagnoses Not on filedocumented in this encounter Care Teams System Programmer Relationship Specialty Start Date End Date Sarah Guerra MD [address] [place] [address] [place] [address] PCP - General 02/03/17 07/14/22 documented as of this encounter
--- OUTSIDE RECORDS SUMMARY | 2024-07-23 15:19 | XMS_ITS | Encounter Summary ---
Author Organization [facility] Address [address] [facility] [address] [place] [address] Care Team Providers Care Dynamometer Tuner Name Role Phone Celeste Ghotra MD Primary Care Provider [phone] Encounter Details Date Type Department Care Team (Late st Contact Info) Description 01/09/2024 Orders Only [facility] [address], [place] [phone] Celeste Ghotra MD [address] [place], [place] [phone] Elevated LFTs (Primary Dx); Left lower quadrant pain Social History Tobacco Use Types Packs/Day Years Used Date Smoking Tobacco: Never Passive Smoke Exposure: Never Smokeless Tobacco: Never Alcohol Use Standard Drinks/Week Comments Never 0 (1 standard drink = 0.6 oz pur e alcohol) Depression Answer Date Recorded Patient Health Questionnaire-9 Score 0 01/09/2024 Patient Health Questionnaire-9 Score 0 01/09/2024 Last PHQ-9: Questionnaire Data Not on file 0 01/09/2024 Housing Stability Answer Date Recorded What is your housing situation today? I have erica pendleton 05/01/[address] you li ve. Do you have problems with any of the following? None of the above 05/01/2023 Food Insecurity Answer Date Recorded Within the past 12 months, y ou worried that your food would run out before you got money to buy more: Never True 08/21/2023 Within the past 12 months,th e food you bought just didn't last and you didn't have enough money to get more: Never True Transportation Answer Date Recorded In the past 12 months, has l ack of transportation kept you from medical appts, meetings, work or from getting things needed for daily living? Yes, it has kept me from medical appointments or getting medications. 08/21/2023 Utilities Answer Date Recorded In the past 12 months, has t he electric, gas, oil or water company threatened to shut off services in your home? No 05/01/2023 Depression Answer Date Recorded Patient Health Questionnaire-2 Score 0 01/09/2024 Sex and Gender Information Value Date Recorded Sex Assigned at Male 04/25/2022 10:25 AM EDT Legal Sex Male 10:25 AM EDT Gender Identity Male 04/25/2022 10:25 AM EDT Sexual Orientation Choose not to disclose 2021 10:25 AM EDT documented as of this encounter Plan of Treatment Upcoming Encounters Date Type Department Care Team (Late st Contact Info) Description 08/29/2024 9:00 AM EST Office Visit [facility] [address] [place] [address] Celeste Ghotra MD [address] [place] [address] Scheduled Orders Name Type Priority Associated Diagnoses Orde r Schedule Celiac Disease Comprehensive Panel Lab Routine Elevated LFTs Left lower quadrant pain Expected: 01/09/2024, Expires: 01/08/2025 Helicobacter pylori??Antigen, EIA, Stool Lab Routine Elevated LFTs Left lower quadrant pain Expected: 01/09/2024 (Approximate), Expires: 01/08/2025 Hepatic Function Panel Lab Routine Elevated LFTs Left lower quadrant pain Expected: 01/09/2024 (Approximate), Expires: 01/08/2025 documented as of this encounter Visit Diagnoses Diagnosis Elevated LFTs- Primary Other abnormal blood chemistry Left lower quadrant pain Abdominal pain, left lower quadrant documented in this encounter Additional Health Concerns Assessment Noted Time PHQ-9 Depression Total Score: 0 01/09/20 24 10:51 AM EDT documented as of this encounter Care Teams Dynamometer Tuner Relationship Specialty Start Date End Date Cleeste Ghotra MD [address] [place], [place] [phone] PCP - General Family Medicine 08/24/22 documented as of this encounter
--- OUTSIDE RECORDS SUMMARY | 2024-07-23 15:19 | XMS_ITS | Clinical Summary ---
Author Organization [employer] Address [address] [place] [address] Care Team Providers Care Rails Developer Name Role Phone Celeste Ghotra MD Primary Care Provider [phone] Allergies No known active allergies Medications * This document contains information received from the source organization and may not represent a complete record from that organization. cetirizine (ZyrTEC) 10 MG tablet Take 1 tablet (10 mg) by mouth Once per day. 30 tablet 5 01/09/2024 Active Active Problems Problem Noted Date Diagnosed Date Neck pain on right side 04/10/2024 Transaminitis 04/10/2024 Assessment & Plan (04/10/2024 12:48 PM EDT): - check lab and H. Pylori / celiac diseaes - consider revaccinating Hep B - consider US if LFT remains elevated Left lower quadrant pain 01/09/2024 Assessment & Plan (04/10/2024 2:31 PM EDT): - check UA and lab. If blood in urine, will further evaluate with US. - follow-up in 3 months Assessment & Plan (01/09/2024 11:27 AM EDT): - check UA and lab. If blood in urine, will further evaluate with US. - follow-up in 3 months Neck mass 01/09/2024 Assessment & Plan (04/10/2024 12:49 PM EDT): - will check with CT scan Assessment & Plan (01/09/2024 11:31 AM EDT): - right cervical lymph node, likely reactive lymph node - will recheck in 3 months Allergic conjunctivitis 01/09/2024 Assessment & Plan (01/09/2024 11:33 AM EDT): - possibly vasomotor conjunctivitis - will try cetrizine and eye drops - will refer him to radiology specialist as requested Pain in both testicles 08/28/2023 Assessment & Plan (08/28/2023 2:40 PM EST): - about 8 months - left > right - evaluate with ultrasound - check STI Severe episode of recurrent major depressive disorder, with psychotic features 08/28/2023 Assessment & Plan (07/16/2024 9:58 AM EST): During IBH Consult Frank presenting with depressed mood, Tearful, crying spells , hopelessness, irritable mood, loss of interests/pleasure , sense of isolation/loneliness , isolating, change in appetite or weight reduce appetite, changes in sleep difficulty falling asleep and difficulty staying asleep , psychomotor retardation, fatigue/loss of energy, inappropriate/excessive guilt , difficulty concentrating, indecisiveness and Decreased need for sleep, Changes in self-image, and Other: visual and auditory hallucinations; for a period of 18+ mo, for most or all symptoms in the context of family issues and employment concern. Pt carries history of depression. His dad when he was 13 y/o. Currently living with his younger brother. Frank reports hearing voices and having visual hallucinations- voices without commands. He states he loves his job but his performance has been affected due to high symptoms and he's afraid he might lose his job. Pt has many strength and is willing at this time to start therapy and medication management to alleviate his symptoms. More information needed to discuss further diagnosis of bipolar dx. clinician engaged patient with active/reflective listening. Reviewed and assessed for risk, current stressors and protective factors. Provided emphatic approach to patient's current living situation and provided a safe space for patient to share his emotions and concerns. Pt will be referred to psychiatry services. Intake completed with [facility]. clinician will provide additional support as needed during next medical appointments. Assessment & Plan (01/09/2024 11:30 AM EDT): - history of depression adolescence (lost father at age 13 and was taking medications) - history of self-harm and suicidal ideation - patient is not interested in pharmacological treatment - PHQ-9 improved, patient reports improvement in his mood Assessment & Plan (08/29/2023 12:21 PM EST): During IBH Consult Frank presenting with depressed mood, loss of interests/pleasure , change in appetite or weight reduce appetite, trouble concentrating, thoughts of worthlessness or guilt, fatigue/loss of energy, hopelessness, passive suicidal ideation w/o plan; for a period of 6-12 mo, for all symptoms in the context of and family issues. Frank endorsed depressive mood, hx of depression since the of his father when he was 13 y/o. Didn't work on closure/grief, still difficult to talk about his dad. Silvia and family are very important for Frank. He lives with his younger brother who was autism. Endorsed self-harm as a way of coping with unwanted and uncomfortable emotions. PLAN: (check all that apply) New/Additional Services needed On-site non-integrated services Off-site services for Behavioral Health Integration Plan Internal Follow up with [facility] External OP therapy referral Patient Self Plan Patient to utilize skills provided in intervention , Patient to [facility] out to [facility] team as needed, Patient to engage in OP therapy , and Patient to reach out to HC as needed Assessment & Plan (08/28/2023 2:44 PM EST): - history of depression adolescence (lost father at age 13 and was taking medications) - history of self-harm and suicidal ideation - patient is not interested in pharmacological treatment - patient would like to resume counseling; seen by behavioral health clinician today. His insurance will not cover for the cost of counseling. Our behavioral health service provider is willing to see patient when he comes to the clinic - patient was able to contact his safety today - follow up in 2-3 mo. Underweight 08/28/2023 Assessment & Plan (01/09/2024 11:29 AM EDT): - patient is not interested in appetite stimulant such as cyproheptadine - he has gained weight - continue current healthy diet Assessment & Plan (08/28/2023 2:45 PM EST): - patient is not interested in appetite stimulant such as cyproheptadine - patient would like to see a divorce lawyer; will refer - check lab Right wrist pain 08/28/2023 Assessment & Plan (01/10/2024 11:57 AM EDT): - chronic - likely repetition of micro-trauma - seen in [facility] [place], XR negative for fracture - will prescribe wrist brace - consider referral to orthopedist Assessment & Plan (08/28/2023 2:46 PM EST): - chronic - likely repetition of micro-trauma - check X-ray - refer to orthopedist after X-ray Grief 08/28/2023 Assessment & Plan (08/29/2023 12:21 PM EST): During IBH Consult Frank presenting with depressed mood, loss of interests/pleasure , change in appetite or weight reduce appetite, trouble concentrating, thoughts of worthlessness or guilt, fatigue/loss of energy, hopelessness, passive suicidal ideation w/o plan; for a period of 6-12 mo, for all symptoms in the context of and family issues. Frank endorsed depressive mood, hx of depression since the of his father when he was 13 y/o. Didn't work on closure/grief, still difficult to talk about his dad. Silvia and family are very important for Frank. He lives with his younger brother who was autism. Endorsed self-harm as a way of coping with unwanted and uncomfortable emotions. PLAN: (check all that apply) New/Additional Services needed On-site non-integrated services Off-site services for Behavioral Health Integration Plan Internal Follow up with [facility] External OP therapy referral Patient Self Plan Patient to utilize skills provided in intervention , Patient to reach out to [facility] team as needed, Patient to engage in OP therapy , and Patient to reach out to [facility] as needed History of depression 08/24/2022 Assessment & Plan (08/24/2022 3:44 PM EST): -previously tried pharmacological treatment and CBT -pt has resilience and has developed healthy coping skills Lesion of skin of scalp 08/24/2022 Assessment & Plan (08/24/2022 3:46 PM EST): -few small cysts, likely benign -avoid irritation -monitor periodically Resolved Problems Problem Noted Date Diagnosed Date Resolved Date Routine general medical exam ination at a health care facility 08/24/2022 04/10/2024 Assessment & Plan (08/24/2022 3:50 PM EST): - immunizations reviewed, up to date except COVID bivalent booster - he declines STI screening - he was recommended to schedule dental appt - he is exercising; encouraged to continue practicing healthy lifestyle Adolescent depression 01/20/20202022 Overview (08/24/2022): 03/2018: Started seeing therapist from [facility] in May 2017 for some depression. Started on meds ~ 1 month later. Tried one med - no help so then started a medication (? Name) - no help so it was stopped. Started Paxil around Jul 2017 & sertraline added early this summer (2017).Just given trazadone yest to help with sleep Last Assessment & Plan: Depression screen was + today though patient says he actually is feeling OK patient stopped seeing therapist & psychiatrist ~ 1 year ago. He decided he did not want to be on meds Discussed BH provider at [facility] & offered referral - patient declined & says he is feeling fine now He will call if wishing to see some one Reviewed Crisis # Encounters * This document contains information received from the source organization and may not represent a complete record from that organization. Date Type Department Care Team Description 07/12/2024 Orders Only [facility] [address] [place] [address] Celeste Ghotra MD Neck pain on right side (Primary Dx); Neck mass 07/02/2024 Telephone [facility] [address] [place] [address] Celeste Ghotra MD Results from Last 3 Months Immunizations Name Administration Dates Next Due Influenza injectable quadrivalent preservative f ree 08/24/2022 Influenza, seasonal, injectable, preservative fr ee 04/10/2024 Td (adult), 5 Lf tetanus tox oid, preservative free, adsorbed 08/24/2022 Family History Medical History Relation Name Comments No Known Problems Brother Kidney cancer Father No Known Problems Mother Relation Name Status Comments Brother Father Mother Social History Tobacco Use Types Packs/Day Years Used Date Smoking Tobacco: Never Passive Smoke Exposure: Never Smokeless Tobacco: Never Tobacco Cessation:Counseling Given: Not Answered Alcohol Use Standard Drinks/Week Comments Never 0 (1 standard drink = 0.6 oz pur e alcohol) Depression Answer Date Recorded Patient Health Questionnaire-9 Score 12 07/16/2024 Patient Health Questionnaire-9 Score 12 07/16/2024 Last PHQ-9: Questionnaire Data Not on file 0 07/16/2024 Housing Stability Answer Date Recorded What is [...] Answer Date Recorded Patient Health Questionnaire-2 Score 4 07/16/2024 Sex and Gender Information Value Date Recorded Sex Assigned at Male 04/25/2022 10:25 AM EDT Legal Sex Male 10:25 AM EDT Gender Identity Male 04/25/2022 10:25 AM EDT Sexual Orientation Choose not to disclose 2021 10:25 AM EDT Last Filed Vital Signs Vital Sign Reading Time Taken Comments Blood Pressure 116/72 04/10/2024 10:40 AM EDT Pulse 60 04/10/2024 10:40 AM EDT Temperature 36.9 ??C (98.5 ??F) 04/10/2024 10:40 AM E DT Respiratory Rate 14 04/10/2024 10:40 AM EDT Oxygen Saturation 99% 04/10/2024 10:40 AM EDT Inhaled Oxygen Concentration - - Weight 59.9 kg (132 lb) 04/10/2024 10:40 AM EDT Height 170.2 cm (5' 7 ) 01/09/2024 10:49 AM EDT Body Mass Index 20.67 01/09/2024 10:49 AM EDT Plan of Treatment Upcoming Encounters Date Type Department Care Team (Late st Contact Info) Description 08/29/2024 9:00 AM EST Office Visit [facility] [address], [place] [phone] Celeste Ghotra MD [address] [place] [address] Health Maintenance Due Date Last Done Comments Family Planning (PISQ) 2015 COVID-19 Vaccine ( season) 2024 12/01/2020, 11/03/2020 SDOH Screening 08/21/2024 08/21/2023 Depression Monitoring (PHQ-9) 01/13/2025 07/16/2024, 07/16/2024 Alcohol/Substance Use Screening 04/10/2025 04/10/2024 Tobacco Screening 04/10/2025 04/10/2024 Depression Screening 07/16/2025 07/16/2024, 07/16/19 25 DTaP/Tdap/Td Vaccines (8 - Td or Tdap) 08/24/2032 08/24/2022, 11/16/2011, 05/19/2004, Additional history exists Zoster Vaccines (1 of 2) 2050 RSV Patients and Patients Aged 60 years or older (1 - 1-dose 75+ series) 2075 Hepatitis B Vaccines Completed 02/28/2001, 2000, 2000 Pneumococcal Vaccine: Pediatrics (0 to 5 Years) and At-Risk Patients (6 to 64 Years) Aged Out 05/28/2001, 2000, 2000, Additional history exists No longer eligible based on patient's age to complete this topic HIB Vaccines Completed 09/04/2001, 11/24, 2000, Additional history exists IPV Vaccines Completed 05/19/2004, 11/24, 2000, Additional history exists HPV Vaccines Completed 12/19/2013, 12/25, 11/20/2012 Hepatitis A Vaccines Completed 12/30/2014, 12/24/19 14 Meningococcal Vaccine Completed 03/27/2018, 012 HIV Screening Completed 01/09/2024 Hepatitis C Screening Completed 01/09/2024 Influenza Vaccine Completed 04/10/2024, , 03/27/2018, Additional history exists RSV under 20 months Aged Out No longe r eligible based on patient's age to complete this topic Rotavirus Vaccines Aged Out No longer eligible based on patient's age to complete this topic Procedures Procedure Name Priority Date/Time Associated Diagnosis Comments CT SOFT TISSUE NECK W CONTRAST Routine 06/12/2024 3:47 PM EST Neck mass HEPATITIS C AB W/REFL TO HCV RNA, QN, PCR Routine 01/09/2024 12:20 PM EDT Dysuria HIV 1/2 ANTIGEN/ANTIBODY, FOURTH GENERATION W/RFL Routine 01/09/2024 12:20 PM EDT Dysuria from Last 3 Months or Most Recently Relevant to Health Maintenance Results * CT Soft Tissue Neck w/ Contrast (06/12/2024 3:47 PM EST) Anatomical Region Laterality Modality Head, Neck Computed Tomogra phy 06/12/2024 3:47 PM EST Narrative 07/11/2024 3:51 PM EST ? [facility] ?[address] ?[place] [address] ? CT Scan Report ? Signed ? Patient: Viral,Frank N ?MR#: [id number] ?? [id number] ? : 2000 ?Acct:[id number] ? Age/Sex: 24 / M ?ADM Date: 06/12/24 ? Loc: HO.CT ? Attending Dr: Celeste Ghotra MD ? Ordering Physician: Celeste Ghotra MD ?? Date of Service: 06/12/24 ?? Procedure(s): CT soft tissue neck w IV con ?? Accession Number(s): [id number] ? cc: Celeste Ghotra MD ? Report Number: ?? [id number]: Total DLP = ??218.00 mGy-cm ?? EXAMINATION: ?? CT SOFT TISSUE NECK WITH CONTRAST ? CLINICAL INFORMATION: ?? Right-sided neck tenderness. Nodule. Difficulty palpating. Weight loss. ? COMPARISON: ?? None available. ? TECHNIQUE: ?? Multidetector helical imaging was performed in the axial plane ?? following the administration of 60 mL of Omnipaque 350 intravenous ?? contrast. Multiple axial reformats and coronal/sagittal reconstructions ?? were created the technologist workstation for review. ? This CT examination was performed using dose optimization techniques as ?? appropriate, variously including the following: ?? *Automated exposure control. ?? *Adjustment of mA and/or kV according to patient size (this includes ?? techniques or standardized protocols for targeted exams where dose is ?? matched to indication/reason for exam; i.e. extremities or head). ?? *Use of iterative reconstruction technique. ? DLP: ?? 218 mGy-cm ? FINDINGS: ?? There is a skin marker along the right lateral neck posterior to the ?? right angle the mandible. Directly beneath the skin marker, there is a ?? nonspecific 1.1 cm nodule with nonspecific soft tissue attenuation (45 ?? Hounsfield units). ? No significant cutaneous thickening or subcutaneous inflammation. No ?? discrete fluid collection within the deep tissues of the neck. The ?? premaxillary, retromaxillary, pterygopalatine fossa, orbital apical, ?? parapharyngeal, and prelaryngeal adipose tissue is maintained. Normal ?? appearance of the parotid, submandibular, and thyroid glands. Bilateral ?? level IIa lymph nodes measure up to 1.1 cm. Otherwise, scattered ?? subcentimeter lymph nodes bilaterally, none of which are pathologically ?? enlarged or abnormally enhancing. No demonstrated focal lesion or ?? abnormal enhancement within the intrinsic tissues of the tongue or ?? floor of mouth. Normal mucosal contours of the pharynx and larynx ?? without abnormal enhancement. Normal appearance of the hyoid bone, ?? thyroid cartilage, or cartilaginous trachea. The airways remains widely ?? patent. No radiopaque foreign bodies. ? The atlantooccipital and atlantoaxial articulations remain well ?? aligned. There is anatomic alignment of the vertebral bodies and ?? posterior elements. No evidence of acute fracture or subluxation of the ?? cervical spine. The vertebral body heights are maintained. The ?? intervertebral disc spaces are maintained. No evidence of epidural ?? collection. There is no prevertebral soft tissue swelling. Normal ?? opacification of the cervical arterial and venous structures. ? The visualized portion of the skull base is without significant ?? abnormalities. Mild mucosal thickening of the paranasal sinuses. The ?? mastoid air cells and middle ear cavities are clear. No demonstrated ?? significant periapical odontogenic disease. ? CT Upper Chest: ?? The visualized lung apices and upper mediastinum are within normal ?? limits. ? CT/CT soft tissue neck w IV con ?? IMPRESSION: ?? 1. ??Directly beneath the skin marker along the right lateral neck ?? posterior to the right angle the mandible, there is a nonspecific 1.1 ?? cm nodule with nonspecific soft tissue attenuation. A mildly prominent ?? lymph node or nonspecific inclusion cyst could have this appearance. If ?? clinically indicated, this could be further characterized with targeted ?? ultrasound. ?? 2. ??No additional focal lesion, collection, pathologically enlarged ?? lymphadenopathy, or abnormal enhancement within the soft tissues of the ?? neck. ? Electronically signed by: ??Aakash Rubalcava DO ??07/11/2024 03:48 PM EST RP ? Dictated By: ?KhadarHector DO ? Signed By: ?<Electronically signed by Hector Rubalcava, DO in OV> ? 07/11/24 1548 ? DD/ 1547 ? TD/TT: 06/12/24 1711 ? Floor Covering Printer Assistant: JL ? Procedure Note Donotuseinterpreter, Image - 07/11/[address] [address] [address] Scan Report Signed Patient: Frank Stratton#: [id number] : 2000Acct:[id number] Age/Sex: 24 / MADM Date: 06/12/24 Loc: HO.CT Attending Dr: Celeste Ghotra MD Ordering Physician: Celeste Ghotra MD Date of Service: 06/12/24 Procedure(s): CT soft tissue neck w IV con Accession Number(s): [id number] cc: Celeste Ghotra MD Report Number: [id number]: Total DLP = 218.00 mGy-cm EXAMINATION: CT SOFT TISSUE NECK WITH CONTRAST CLINICAL INFORMATION: Right-sided neck tenderness. Nodule. Difficulty palpating. Weight loss. COMPARISON: None available. TECHNIQUE: Multidetector helical imaging was performed in the axial plane following the administration of 60 mL of Omnipaque 350 intravenous contrast. Multiple axial reformats and coronal/sagittal reconstructions were created the technologist workstation for review. This CT examination was performed using dose optimization techniques as appropriate, variously including the following: *Automated exposure control. *Adjustment of mA and/or kV according to patient size (this includes techniques or standardized protocols for targeted exams where dose is matched to indication/reason for exam; i.e. extremities or head). *Use of iterative reconstruction technique. DLP: 218 mGy-cm FINDINGS: There is a skin marker along the right lateral neck posterior to the right angle the mandible. Directly beneath the skin marker, there is a nonspecific 1.1 cm nodule with nonspecific soft tissue attenuation (45 Hounsfield units). No significant cutaneous thickening or subcutaneous inflammation. No discrete fluid collection within the deep tissues of the neck. The premaxillary, retromaxillary, pterygopalatine fossa, orbital apical, parapharyngeal, and prelaryngeal adipose tissue is maintained. Normal appearance of the parotid, submandibular, and thyroid glands. Bilateral level IIa lymph nodes measure up to 1.1 cm. Otherwise, scattered subcentimeter lymph nodes bilaterally, none of which are pathologically enlarged or abnormally enhancing. No demonstrated focal lesion or abnormal enhancement within the intrinsic tissues of the tongue or floor of mouth. Normal mucosal contours of the pharynx and larynx without abnormal enhancement. Normal appearance of the hyoid bone, thyroid cartilage, or cartilaginous trachea. The airways remains widely patent. No radiopaque foreign bodies. The atlantooccipital and atlantoaxial articulations remain well aligned. There is anatomic alignment of the vertebral bodies and posterior elements. No evidence of acute fracture or subluxation of the cervical spine. The vertebral body heights are maintained. The intervertebral disc spaces are maintained. No evidence of epidural collection. There is no prevertebral soft tissue swelling. Normal opacification of the cervical arterial and venous structures. The visualized portion of the skull base is without significant abnormalities. Mild mucosal thickening of the paranasal sinuses. The mastoid air cells and middle ear cavities are clear. No demonstrated significant periapical odontogenic disease. CT Upper Chest: The visualized lung apices and upper mediastinum are within normal limits. CT/CT soft tissue neck w IV con IMPRESSION: 1. Directly beneath the skin marker along the right lateral neck posterior to the right angle the mandible, there is a nonspecific 1.1 cm nodule with nonspecific soft tissue attenuation. A mildly prominent lymph node or nonspecific inclusion cyst could have this appearance. If clinically indicated, this could be further characterized with targeted ultrasound. 2. No additional focal lesion, collection, pathologically enlarged lymphadenopathy, or abnormal enhancement within the soft tissues of the neck. Electronically signed by: Aakash Rubalcava DO 07/11/2024 03:48 PM EST Dictated By: Hector Rubalcava DO Signed By: <Electronically signed by Hector Rubalcava DO in OV> 07/11/24 1548 DD/ 1547 TD/TT: 06/12/24 1711 Floor Covering Printer Assistant: VALENTINA us Celeste Ghotra MD IM CT PROCEDURES Final Result * Hepatitis C Antibody with Reflex to HCV, RNA, Quantitative, Real-Time PCR (01/09/2024 12:20 PM EDT) Hepatitis C Antibody Nonreactive Nonreactive [facility] Comment:Antibodies to HCV no t detected; does not exclude early acuteHCV infection. Blood Venous blood specimen / Unknown 01/09/2024 12:20 PM EDT 01/09/2024 12:50 PM EDT us Celeste Ghotra MD LAB BLOOD ORDERABLES Final Resul t Performing Organization Address [facility] Co de Phone Number [facility] [address] [place] [address] [phone] * HIV-1/2 Antigen and Antibodies, Fourth Generation, with Reflexes (01/09/2024 12:20 PM EDT) HIV AB/AG Nonreactive Nonreactive [facility] Comment:HIV-1 p24 Ag and/or HIV-1/HIV-2 Ab not detected.A test result that is nonreactive does not exclude thepossibility of exposure to or infection with HIV-1 and/orHIV-2. Nonreactive results in this assay for individualswith prior exposure to HIV-1 and/or HIV-2 may be due toantigen and antibody levels that are below the limit ofdetection of this assay.The [employer] HIV Ag/Ab Combo assay result andsupplemental assay results should be interpreted inconjunction with the patient's clinical presentation,history and other laboratory results. If the results areinconsistent with clinical evidence, additional testing issuggested to confirm the result. Blood Venous blood specimen / Unknown 01/09/2024 12:20 PM EDT 01/09/2024 12:50 PM EDT us Celeste Ghotra MD LAB BLOOD ORDERABLES Final Resul t Performing Organization Address City/[facility]/ZIP Co de Phone Number [facility] [address] [place] [address] [phone] from Last 3 Months or Most Recently Relevant to Health Maintenance Insurance [facility] [facility] C3 Advance Directives Documents on File Type Date Recorded Patient Industrial Hygenist Expl anation HealthCare Proxy 10/20/2022 Proxy Care Teams Rails Developer Relationship Specialty Start Date End Date Celeste Ghotra MD [address] [place] [id number] PCP - General Family Medicine 08/24/22
--- OUTSIDE RECORDS SUMMARY | 2024-07-23 15:19 | XMS_ITS | Encounter Summary ---
Author Organization [employer] Address [address] [facility] [address] [place] [address] Care Team Providers Care Scaler Name Role Phone Celeste Ghotra MD Primary Care Provider [phone] Reason for Visit * Reason Onset Date Comments Results 07/02/2024 Encounter Details Date Type Department Care Team ([facility] st Contact Info) Description 07/02/2024 Telephone [facility] [address] [place], [place] [phone] Celeste Ghotra MD [address] [place], [place] [phone] Results Social History Tobacco Use Types Packs/Day Years [...] AM EDT documented as of this encounter Miscellaneous Notes * Telephone Encounter - Tarah Rodriguez RN - 07/12/2024 10:23 AM EST US read yesterday, provider interpretation below. Called pt to advise of below results from ultrasound per PCP. Advised him that neck nodule seems benign on CT scan and that it appears to be cyst or enlarged lymph node without cancerous traits. Advised pt that PCP ordered follow up ultrasound to better visualize it but if not having pain or concern about infection, then US not needed. Pt stated he is still concerned in general and would like to have ultrasound performed. Advised him that [facility] [place] reach out in 1-2 weeks to schedule US. Pt verbalized understanding, advised to call clinic PRN with any questions or concerns. -- Please inform patient that his neck nodule seems to be benign on CT. No cancerous characteristic. Either normal lymph node that is enlarged or inclusion cyst. US is better in characterization. I have ordered US, just in case. However, if he is not having pain or concern about infection, then he does not need to have US. Thank you. * Telephone Encounter - Tarah Rodriguez RN - 07/11/2024 9:38 AM EST As of 07/11/23, results not in. Will task to check again tomorrow and call again to request selby read. * Telephone Encounter - Tarah Rodriguez RN - 07/10/2024 10:09 AM EST As of 07/10/23, CT scan not yet read. Selby read requested on 07/05/24, will task to check again. * Telephone Encounter - Tarah Rodriguez RN - 07/09/2024 9:11 AM EST As of 07/09/24, CT of the neck from 06/12/24 not yet read. Selby read already requested, will task tocheck again. * Telephone Encounter - Tarah Rodriguez RN - 07/05/2024 9:07 AM EST As of 07/05/24, CT of the neck not yet read. Called [facility] and spoke with Jass to request selby read. Will task to check on status. * Telephone Encounter - Jose Angel Robert - 07/02/2024 3:45 PM EST TC from pt requesting call back regarding Results. Type of results: CT Scan Date when done: 06/12/24 Facility: [facility] documented in this encounter Plan of Treatment Upcoming Encounters Date Type Department Care Team (Late st Contact Info) Description 08/29/2024 9:00 AM EST Office Visit [facility] [address] [place] [address] Celeste Ghotra MD [address] [place] [address] documented as of this encounter Visit Diagnoses Not on filedocumented in this encounter Additional Health Concerns Assessment Noted Time PHQ-9 Depression Total Score: 0 01/09/20 10:51 AM EDT documented as of this encounter Care Teams Scaler Relationship Specialty Start Date End Date Celeste Ghotra MD [address] [place] [address] PCP - General Family Medicine 08/24/22 documented as of this encounter
--- OUTSIDE RECORDS SUMMARY | 2024-07-23 15:19 | XMS_ITS | Clinical Summary ---
Author Organization [facility] Address [address] [place] [address] Phone Care Team Providers Care Plumber Apprentice Name Role Phone Unavailable Primary Care Provider Unavailabl e Allergies No known active allergies Medications No known medications Active Problems Problem Noted Date Diagnosed Date Adolescent depression 01/20/2020 Overview (01/20/2020): 03/2018: Started seeing therapist from [place] in May 2017 for some depression. Started on meds ~ 1 month later. Tried one med - no help so then started a medication (? Name) - no help so it was stopped. Started Paxil around Jul 2017 & sertraline added early this summer (2017).Just given trazadone yest to help with sleep Assessment & Plan (01/20/2020 2:49 PM EDT): Depression screen was + today though patient says he actually is feeling OK patient stopped seeing therapist & psychiatrist ~ 1 year ago. He decided he did not want to be on meds Discussed BH provider at [facility] & offered referral - patient declined & says he is feeling fine now He will call if wishing to see some one Reviewed Crisis # Need for case management follow-up 01/20/2020 Overview (01/20/2020): 01/20/2020 : Frank who is 19yr was seen today during the covid 19 pandemic. When the pandemic subsides, he needs Age appropriate vital signs, Age appropriate Vision +/- hearing screening, GC/Chlamydia screening, Lipid screening Immunizations Name Administration Dates Next Due DTaP 5 05/19/2004, 2,2000,10/10,2000 H1N1 07/22/2009,2009 HPV, Quadrivalent 12/19/2013,01/21/2013,11/21/19 13 Hep A, ped/adol 12/30/2014,12/23/2013 Hep B, ped/adol 02/28/2001,2000,2000 Hib (PRP-T) 09/04/2001, 1,2000,08/08 IPV 05/19/2004, 1,2000,08/08 Influenza Split 03/03/2011,06/09/2010 Influenza, injectable, quadrivalent 04/26/2016 Influenza, injectable, quadr ivalent, preservative free 03/27/2018,03/13/2017 Influenza, injectable, trivalent 07/22/2009,03/27,07/12/2007 MMR 05/19/2004,09/04/2001 Meningococcal B Trumenba 09/27/2018,03/27/2018 Meningococcal Conj (Menactra) MCV4P 03/27/2018,0 11/16/2011 Pneumococcal Conjugate 05/28/2001,2000,2000,08/08 Tdap 11/16/2011 Varicella 08/21/2008,05/28/2001 Family History Medical History Relation Name Comments Kidney cancer Father Asthma Mother Hypertension Mother Relation Name Status Comments Brother Alive Brother: Alive and well Father Half-Brother Alive Half brother (M ): Asthma Maternal Grandfather Alive Materna l grandfather: Diabetes / hypertension / heart problem Maternal Grandmother Alive Materna l grandmother: Hypertension / Heart problem Mother Alive Other Family history of Elevated cholesterol, Family history of Asthma, Family history of Diabetes mellitus Paternal Grandfather Paterna l grandfather: Cancer -stomach, Paternal Grandmother Alive Paterna l grandmother: Hypertension / diabetes / heart problem Social History Tobacco Use Types Packs/Day Years Used Date Smoking Tobacco: Never Smokeless Tobacco: Never Comments:Never smoker Alcohol Use Standard Drinks/Week Comments No 0 (1 standard drink = 0.6 oz pur e alcohol) Hunger/Food Answer Date Recorded In the last 12 months, did y ou or your family ever eat less than you felt you should because there wasn't enough money for food? No 01/19/2020 Stable Housing Answer Date Recorded Are you worried that in the next 2 months you may not have stable housing? No 01/19/2020 Transportation Concerns Answer Date Rec orded In the last 12 months, have you or your family ever had to go without healthcare because you didn't have a way to get there? No 01/19/2020 Hazards in Home Answer Date Recorded Think about the place you li ve. Do you have problems with any of the following? Pests (mice or roaches), mold, no/not working smoke detectors, water leaks, no window guards. No 2019 Financing Utilities Answer Date Recorde d In the last 12 months, has t he electric, gas, oil, or water company threatened to shut off your services in your home? No 01/19/2020 Safety at Home Answer Date Recorded Are you or your family worried about feeling saf e in your home? No 01/19/2020 Outside Support Answer Date Recorded Do you feel that you need mo re support from other people or programs to help you care for yourself or your family? No 01/19/2020 Understanding Health Concerns Answer Da te Recorded Do you need help understandi ng your or your child's healthcare needs (diagnosis, medications, plan, etc.)? No 01/19/2020 Financing Health Concerns Answer Date R ecorded In the last 12 months, was t here a time when your child needed to see a doctor or get medications or supplies but could not because of cost? No 01/19/2020 Missing School or Work Answer Date Kris rded Did you or your child miss s chool or work because of a health problem that could have been avoided? No 01/19/2020 Sex and Gender Information Value Date Recorded Sex Assigned at Not on file Legal Sex Male 5:09 PM EDT Gender Identity Not on file Sexual Orientation Not on file Last Filed Vital Signs Vital Sign Reading Time Taken Comments Blood Pressure 113/75 03/27/2018 1:45 PM EDT Pulse 88 03/27/2018 1:45 PM EDT Temperature 36.2 ??C (97.1 ??F) 03/27/2018 1:45 PM ED T Respiratory Rate - - Oxygen Saturation - - Inhaled Oxygen Concentration - - Weight 51.9 kg (114 lb 6.4 oz) 03/27/2018 1:45 P M EDT Height 167.6 cm (5' 6 ) 03/27/2018 1:45 PM EDT Body Mass Index 18.46 03/27/2018 1:45 PM EDT Plan of Treatment Health Maintenance Due Date Last Done Comments Influenza Vaccines (#1) 2024 08/25/19, 03/27/2018, 03/13/2017, Additional history exists COVID-19 Vaccine (2023-2 5 season) 2024 12/01/2020, 11/03/2020 DTaP,Tdap,and Td Vaccines (8 - Td or Tdap) 08/24/2032 08/24/2022, 11/16/2011, 05/19/2004, Additional history exists Hepatitis B Vaccines Completed 02/28/2001, 2000, 2000 Pneumococcal Vaccine Completed 05/28/2001, 2000, 2000, Additional history exists HIB Vaccines Completed 09/04/2001, 11/24, 2000, Additional history exists IPV Vaccines Completed 05/19/2004, 11/24, 2000, Additional history exists MMR Vaccines Completed 05/19/2004, 09/04/2001 Varicella Vaccines Completed 08/21/2008, 05/28/2001 HPV Vaccines Completed 12/19/2013, 12/25, 11/20/2012 Hepatitis A Vaccines Completed 12/30/2014, 12/24/19 14 Meningococcal Vaccine Completed 03/27/2018, 012 Men B Vaccine Completed 09/27/2018, 03/27/2018
--- OUTSIDE RECORDS SUMMARY | 2024-07-23 15:19 | XMS_ITS | Encounter Summary ---
Author Organization [employer] Address [address] [facility] [address] [place] [address] Care Team Providers Care Service Advocate Contact Name Role Phone Celeste Ghotra MD Primary Care Provider [phone] Reason for Visit * Reason Onset Date Comments Appointment Request 07/21/2023 Encounter Details Date Type Department Care Team (Late st Contact Info) Description 07/21/2023 Telephone [facility] [address] [place], [place] [phone] Celeste Ghotra MD [address] [place], [place] [phone] Appointment Request Social History Tobacco Use Types Packs/Day Years Used Date Smoking Tobacco: Never Passive Smoke Exposure: Never Smokeless Tobacco: Never Alcohol Use Standard Drinks/Week Comments Never 0 (1 standard drink = 0.6 oz pur e alcohol) Housing Stability Answer Date Recorded What is [...] got money to buy more: Never True 05/01/2023 Within the past 12 months,th e food you bought just didn't last and you didn't have enough money to get more: Not on file 11/2022 Transportation Answer Date Recorded In the past 12 months, has l ack of transportation kept you from medical appts, meetings, work or from getting things needed for daily living? No 05/01/2023 Utilities Answer Date Recorded In the past 12 months, has t he electric, gas, oil or water company threatened to shut off services in your home? No 05/01/2023 Sex and Gender Information Value Date Recorded Sex Assigned at Male 04/25/2022 10:25 AM EDT Legal Sex Male 10:25 AM EDT Gender Identity Male 04/25/2022 10:25 AM EDT Sexual Orientation Choose not to disclose 2021 10:25 AM EDT documented as of this encounter Miscellaneous Notes * Telephone Encounter - Escobar Bryant - 07/21/2023 8:58 AM EST Tc from patient requesting a appt with PCP before the PE appt patient states has minor pain in scrotum health technical writer asked if the patient would like to speak to triage nurse patient refused documented in this encounter Plan of Treatment Upcoming Encounters Date Type Department Care Team (Late st Contact Info) Description 08/29/2024 9:00 AM EST Office Visit [facility] [address] [place] [address] Celeste Ghotra MD [address] [place] [address] documented as of this encounter Visit Diagnoses Not on filedocumented in this encounter Care Teams Service Advocate Contact Relationship Specialty Start Date End Date Celeste Ghotra MD [address] [place] [address] PCP - General Family Medicine 08/24/22 documented as of this encounter
--- OUTSIDE RECORDS SUMMARY | 2024-07-23 15:19 | XMS_ITS | Encounter Summary ---
Author Organization [employer] Address [address] [facility] [address] [place] [address] Care Team Providers Care Digital Sales Representative Name Role Phone Celeste Ghotra MD Primary Care Provider [phone] Reason for Referral * Imaging (Routine) - Authorized Specialty Diagnoses / Procedures Referred By Contac t Referred To Contact Radiology Diagnoses Neck pain on right side Neck mass Procedures US Head Neck Soft Tissue Celeste Ghotra MD [address] [place] [address] Phone: tel: fax: [address] Phone: tel: fax: Referral ID Status Reason Start Date Expiration Date V isits Requested Visits Authorized [id number] Authorized 07/12/2024 07/12/2025 1 1 Encounter Details Date Type Department Care Team (Late st Contact Info) Description 07/12/2024 Orders Only [facility] [address] [place], [place] [phone] Celeste Ghotra MD [address] [place] [phone] Neck pain on right side (Primary Dx); Neck mass Social History Tobacco Use Types Packs/Day Years [...] Description 08/29/2024 9:00 AM EST Office Visit [facility] [address] [place] [address] Celeste Ghotra MD [address] [place] [address] Scheduled Orders Name Type Priority Associated Diagnoses Orde r Schedule US Head Neck Soft Tissue Imaging Routine Neck pain on right side Neck mass Expected: 07/12/2024, Expires: 07/12/2025 documented as of this encounter Visit Diagnoses Diagnosis Neck pain on right side- Primary Neck mass Swelling, mass, or lump in head and neck documented in this encounter Additional Health Concerns Assessment Noted Time PHQ-9 Depression Total Score: 0 07/16/20 24 10:51 AM EDT documented as of this encounter Care Teams Digital Sales Representative Relationship Specialty Start Date End Date Celeste Ghotra MD [address] [place] [phone] PCP - General Family Medicine 08/24/22 documented as of this encounter
== END 2024-07-23 14:26 | disposition home or self-care (01) ==
LOC: HO.US 14:25
PROVIDERS: PCP Family Medicine; Visit Provider Family Medicine
DX: M54.2 Cervicalgia (principal); R22.1 Localized swelling, mass and lump, neck
CPT/HCPCS: 76536

== ENCOUNTER → 2024-07-23 14:30 | Outpatient (BNV) | payer MEDICAID, SELFPAY | PROVIDERS: PCP Family Medicine; Visit Provider Radiology Vascular & Interventional Radiology | DX: R22.1 Localized swelling, mass and lump, neck (principal) | CPT/HCPCS: 76536 ==

== ENCOUNTER 2024-11-04 14:37 | Outpatient (REF) | payer MEDICAID, SELFPAY ==
--- NOTE | ~2024-11-04 | XR_ITS ---
EXAMINATION: XR FOOT, RIGHT CLINICAL INFORMATION: right heel pain and posterior ankle pain, after injury COMPARISON: None available. TECHNIQUE: AP, lateral, and oblique views of the right foot. FINDINGS: The bones and soft tissues are normal. No fracture. Alignment is anatomic. Joint spaces are maintained. XR/XR foot RT min 3V IMPRESSION: Normal right foot. Electronically signed by: Deejay Schwab MD 11/04/2024 03:16 PM EDT
--- OUTSIDE RECORDS SUMMARY | 2024-11-04 14:43 | XMS_ITS | Encounter Summary ---
Author Organization [employer] Address [address] [facility] 7t [place] [address] Care Team Providers Care Photonics Engineer Name Role Phone Celeste Ghotra MD Primary Care Provider [phone] Encounter Details Date Type Department Care Team (Latest Contact Info) Description 11/04/2024 Travel Social History Tobacco Use Types Packs/Day Years [...] housing situation today? I have erica pendleton 11/04/[address] you li ve. Do you have problems with any of the following? None of the above 11/04/2024 Food Insecurity Answer Date Recorded Within the past 12 months, y ou worried that your food would run out before you got money to buy more: Never True 11/04/2024 Within the past 12 months,th e food you bought just didn't last and you didn't have enough money to get more: Never True 05/2025 Transportation Answer Date Recorded In the past 12 months, has l ack of transportation kept you from medical appts, meetings, work or from getting things needed for daily living? No 11/04/2024 Utilities Answer Date Recorded In the past 12 months, has t he electric, gas, oil or water company threatened to shut off services in your home? No 11/04/2024 Depression Answer Date Recorded Patient Health Questionnaire-2 Score 4 07/16/2024 Internet Access Answer Date Recorded Internet Access Q1 Yes 11/04/2024 Internet Access Q2 Not on file 11/04/2024 Sex and Gender Information Value Date Recorded [...] Assessment Noted Time PHQ-9 Depression Total Score: 12 025 9:29 AM EST documented as of this encounter Care Teams Photonics Engineer Relationship Specialty Start Date End Date Celeste Ghotra MD [address] [place] [address] PCP - General Family Medicine 08/24/22 documented as of this encounter
--- OUTSIDE RECORDS SUMMARY | 2024-11-04 14:43 | XMS_ITS | Encounter Summary ---
Author Organization [employer] Address [address] [facility] [address] 7[address] [place] [address] Care Team Providers Care Squirrel Man Name Role Phone Celeste Ghotra MD Primary Care Provider [phone] Encounter Details Date Type Department Care Team (Late st Contact Info) Description 01/09/2024 Orders Only [facility] [address] [place], [place] [phone] Celeste Ghotra MD [address] [place], [place] [phone] Elevated LFTs (Primary Dx); Left lower quadrant [...] as of this encounter Plan of Treatment Scheduled Orders Name Type Priority Associated Diagnoses [...] documented as of this encounter Care Teams Squirrel Man Relationship Specialty Start Date End Date Celeste Ghotra MD [address] [place] [address] PCP - General Family Medicine 08/24/22 documented as of this encounter
--- OUTSIDE RECORDS SUMMARY | 2024-11-04 14:43 | XMS_ITS | Encounter Summary ---
Author Organization [employer] Address [address] [facility] 7t [place] [address] Care Team Providers Care Electronic Device Monitor Name Role Phone Celeste Ghotra MD Primary Care Provider [phone] Reason for Referral * Consultation (Routine) - Closed Specialty Diagnoses / Procedures Referred By Contac t Referred To Contact Diagnoses Recurrent major depressive disorder, remission status unspecified (CMS/HCC) Celeste Ghotra MD [address] [place] [address] Phone: tel: fax: [address] [address] Phone: tel: fax: Referral ID Status Reason Start Date Expiration Date V isits Requested Visits Authorized [id number] Closed Specialty Services Required 08/29/2024 08/29/2025 1 1 Encounter Details Date Type Department Care Team (Late st Contact Info) Description 08/29/2024 Orders Only [facility] [address] [place] [phone] Celeste Ghotra MD [address] [place] [phone] Recurrent major depressive disorder, remission status unspecified (CMS/HCC) (Primary Dx) Social History Tobacco Use Types Packs/Day Years [...] of this encounter Plan of Treatment Scheduled Referrals Name Type Priority Associated Diagnoses Orde r Schedule Referral to Care Management Outpatient Referral Routine Recurrent major depressive disorder, remission status unspecified (CMS/HCC) Expected: 08/29/2024 (Approximate), Expires: 08/29/2025 documented as of this encounter Visit Diagnoses Diagnosis Recurrent major depressive disorder, remission status unspecified (CMS/HCC)- Primary documented in this encounter Additional Health Concerns Assessment Noted Time PHQ-9 Depression Total Score: 12 025 9:29 AM EST documented as of this encounter Care Teams Electronic Device Monitor Relationship Specialty Start Date End Date Celeste Ghotra MD [address] [place] [address] PCP - General Family Medicine 08/24/22 documented as of this encounter
--- OUTSIDE RECORDS SUMMARY | 2024-11-04 14:43 | XMS_ITS | Encounter Summary ---
Author Organization [facility] Address [address] [place] [address] Phone Care Team Providers Care Commercial Appraiser Name Role Phone Sarah Guerra MD Primary Care Provider [phone] Encounter Details Date Type Department Care Team (Late st Contact Info) Description 02/09/2017 Conversion Encounter [facility] [address] [place] [address] Social History Tobacco Use Types Packs/Day Years [...] on filedocumented in this encounter Care Teams Commercial Appraiser Relationship Specialty Start Date End Date Sarah Guerra MD [address] [place] [address] PCP - General 02/03/17 07/14/22 documented as of this encounter
--- OUTSIDE RECORDS SUMMARY | 2024-11-04 14:43 | XMS_ITS | Encounter Summary ---
Author Organization [facility] Address [address] [place] [address] Phone Care Team Providers Care Loan And Credit Manager Name Role Phone Sarah Guerra MD Primary Care Provider [phone] Encounter Details Date Type Department Care Team (Late st Contact Info) Description 12/12/2013 Documentation [facility] Family Medicine [address] [place], [place] [phone] Family Medicine, Physician [address] [place] [address] Social History Tobacco Use Types Packs/Day Years [...] on filedocumented in this encounter Care Teams Loan And Credit Manager Relationship Specialty Start Date End Date Sarah Guerra MD [address] [place] [address] [place] [address] PCP - General 02/03/17 07/14/22 documented as of this encounter
--- OUTSIDE RECORDS SUMMARY | 2024-11-04 14:43 | XMS_ITS | Encounter Summary ---
Author Organization [employer] Address [address] [facility] 7t [place] [address] Care Team Providers Care Risk Engineer Name Role Phone Celeste Ghotra MD Primary Care Provider [phone] Reason for Visit * Reason Onset Date Comments Appointment Request 07/21/2023 Encounter Details Date Type Department Care Team ([facility] st Contact Info) Description 07/21/2023 Telephone [facility] [address] [place], [place] [phone] Celeste Ghotra MD [address] [place], [place] [phone] Appointment Request Social History Tobacco Use Types [...] patient states has minor pain in scrotum greeting card writer asked if the patient would like to speak to triage nurse patient refused documented in this encounter Plan of Treatment Not on file documented as of this encounter Visit Diagnoses Not on filedocumented in this encounter Care Teams Risk Engineer Relationship Specialty Start Date End Date Celeste Ghotra MD [address] [place] [address] PCP - General Family Medicine 08/24/22 documented as of this encounter
--- OUTSIDE RECORDS SUMMARY | 2024-11-04 14:43 | XMS_ITS | Encounter Summary ---
Author Organization [employer] Address [address] [facility] 7t [place] [address] Care Team Providers Care Maxillofacial Surgeon Name Role Phone Celeste Ghotra MD Primary Care Provider [phone] Reason for Visit * Reason Onset Date Comments CHART PREP 11/01/2024 Encounter Details Date Type Department Care Team ([facility] st Contact Info) Description 11/01/2024 Telephone [facility] [address] [place], [place] [phone] Celeste Ghotra MD [address] [place], [place] [phone] CHART PREP Social History Tobacco Use Types Packs/Day Years [...] encounter Miscellaneous Notes * Telephone Encounter - Keith Schroeder MA - 11/01/2024 11:17 AM EDT Chart Prep Labs: not applicable Images: done Soft tissue US 07/23/24. Referrals: not applicable Vaccines due: Covid Screenings: not applicable Overdue care gaps: SDOH, Disability screen, and Tobacco documented in this encounter Plan of Treatment Not on file documented as of this encounter Visit Diagnoses Not on filedocumented in this encounter Additional Health Concerns Assessment Noted Time PHQ-9 Depression Total Score: 12 025 9:29 AM EST documented as of this encounter Care Teams Maxillofacial Surgeon Relationship Specialty Start Date End Date Celeste Ghotra MD [address] [place] [address] PCP - General Family Medicine 08/24/22 documented as of this encounter
--- OUTSIDE RECORDS SUMMARY | 2024-11-04 14:43 | XMS_ITS | Encounter Summary ---
Author Organization [facility] Address [address] [facility] 7t [place] [address] Care Team Providers Care Stock Crane Operator Name Role Phone Celeste Ghotra MD Primary Care Provider [phone] Reason for Referral * Imaging (Routine) - Closed Specialty Diagnoses / Procedures Referred By Contac t Referred To Contact Radiology Diagnoses Neck pain on right side Neck mass Procedures US Head Neck Soft Tissue Celeste Ghotra MD [address] [place] [address] Phone: tel: fax: [address] Phone: tel: fax: Referral ID Status Reason Start Date Expiration Date Visits Re quested Visits Authorized [id number] Closed 07/12/2024 07/12/2025 1 1 Encounter Details Date Type Department Care Team ([facility] st Contact Info) Description 07/12/2024 Orders Only [facility] MEDICINE [address] [place], [place] [phone] Celeste Ghotra MD [address] [place] [address] [phone] Neck pain on right side (Primary Dx); [...] on file documented as of this encounter Procedures Procedure Name Priority Date/Time Associated Diagnosis Comments US HEAD NECK SOFT TISSUE Routine 07/24/2024 11:55 AM EST Neck pain on right side Neck mass documented in this encounter Results * US Head Neck Soft Tissue (07/24/2024 11:55 AM EST) Anatomical Region Laterality Modality Head, Neck Ultrasound 07/24/2024 11:5 5 AM EST Narrative 07/24/2024 11:57 AM EST ? [facility] ?[address] ?[place] [address] ? Ultrasound Report ? Signed ? Patient: Viral,Frank N ?MR#: [id number] ?? [id number] ? : 2000 ?Acct:[id number] ? Age/Sex: 24 / M ?ADM Date: 01/28/25 ? Loc: HO.US ? Attending Dr: Celeste Ghotra MD ? Ordering Physician: Celeste Ghotra MD ?? Date of Service: 07/23/24 ?? Procedure(s): US soft tiss head and/or neck ?? Accession Number(s): [id number] ? cc: Celeste Ghotra MD ? CLINICAL HISTORY: right side neck cyst ? Examination: Limited soft tissue ultrasound ? Indication: Right neck cyst ? Comparison: None. ? Findings: ? In the level 2 region of the right, there is an ovoid hypoechoic wider ?? than tall and smoothly marginated vascular structure measuring 1.4 x 1.0 x ?? 1.3 cm. No definite tract to the skin surface. ?? Adjacent to this, there is a 5 mm similar-appearing structure. ? Impression: ? Probable infected sebaceous/epidermal inclusion cyst versus abnormal lymph ?? node. This would be amenable to sampling if clinically indicated. ?? Correlation for signs and/or symptoms of infection or inflammation. ? This document has been electronically signed by: Jack Ziegler MD on ?? 07/24/2024 11:55:39 ? Dictated By: ?Jack Ziegler MD ? Signed By: ?<Electronically signed by Jack Ziegler MD in OV> ? 07/24/24 1156 ? DD/ 1155 ? TD/TT: 07/24/24 1155 ? Lap Cutter: ? Procedure Note Donkita, Image - 07/24/2024 [place] [address] Ultrasound Report Signed Patient: Frank Stratton [facility]#: [id number] : 2000Acct:[id number] Age/Sex: 24 / MADM Date: 07/23/24 Loc: HO.US Attending Dr: Celeste Ghotra MD Ordering Physician: Celeste Ghotra MD Date of Service: 07/23/24 Procedure(s): US soft tiss head and/or neck Accession Number(s): [id number] cc: Celeste Ghotra MD CLINICAL HISTORY: right side neck cyst Examination: Limited soft tissue ultrasound Indication: Right neck cyst Comparison: None. Findings: In the level 2 region of the right, there is an ovoid hypoechoic wider than tall and smoothly marginated vascular structure measuring 1.4 x 1.0 x 1.3 cm. No definite tract to the skin surface. Adjacent to this, there is a 5 mm similar-appearing structure. Impression: Probable infected sebaceous/epidermal inclusion cyst versus abnormal lymph node. This would be amenable to sampling if clinically indicated. Correlation for signs and/or symptoms of infection or inflammation. This document has been electronically signed by: Jack Ziegler MD on 07/24/2024 11:55:39 Dictated By: Jack Ziegler MD Signed By: <Electronically signed by Jack Ziegler MD in OV> 07/24/24 1156 DD/ 1155 TD/TT: 07/24/241154 Lap Cutter: us Celeste Ghotra MD IMG US PROCEDURES Edited Result - Final documented in this encounter Visit Diagnoses Diagnosis Neck pain on right side- Primary Neck mass Swelling, mass, or lump in head and neck documented in this encounter Additional Health Concerns Assessment Noted Time PHQ-9 Depression Total Score: 0 01/09/20 24 10:51 AM EDT documented as of this encounter Care Teams Stock Crane Operator Relationship Specialty Start Date End Date Celeste Ghotra MD [address] [place] [phone] PCP - General Family Medicine 08/24/22 documented as of this encounter
--- OUTSIDE RECORDS SUMMARY | 2024-11-04 14:43 | XMS_ITS | Encounter Summary ---
Author Organization [facility] Address [address] [facility] [address] 7t [place] [address] Care Team Providers Care Electrical Prospecting Engineer Name Role Phone Celeste Ghotra MD Primary Care Provider Encounter Details Date Type Department Care Team (Late st Contact Info) Description 11/04/2024 1:45 PM EDT Office Visit [facility] [address] [place], [place] [phone] Celeste Ghotra MD [address] [place], [place] [phone] Neck pain on right side (Primary Dx); Severe episode of recurrent major depressive disorder, with psychotic features (CMS/HCC); Transaminitis; Right foot pain; Weight loss Social History Tobacco Use Types Packs/Day Years [...] AM EDT documented as of this encounter Last Filed Vital Signs Vital Sign Reading Time Taken Comments Blood Pressure 112/76 11/04/2024 2:02 PM EDT Pulse 88 11/04/2024 2:02 PM EDT Temperature 36.2 ??C (97.1 ??F) 11/04/2024 2:02 PM ED T Respiratory Rate 18 11/04/2024 2:02 PM EDT Oxygen Saturation 99% 11/04/2024 2:02 PM EDT Inhaled Oxygen Concentration - - Weight 53.7 kg (118 lb 6.4 oz) 11/04/2024 2:02 P M EDT Height 170.2 cm (5' 7 ) 11/04/2024 2:02 PM EDT Body Mass Index 18.54 11/04/2024 2:02 PM EDT documented in this encounter Miscellaneous Notes * Assessment & Plan Note - Jennifer Yadav MA - 11/04/2024 2:28 PM EDTAssociated Problem(s): Transaminitis - check lab and H. Pylori / celiac diseaes - consider revaccinating Hep B - consider US if LFT remains elevated * Assessment & Plan Note - Jennifer Yadav MA - 11/04/2024 2:28 PM EDTAssociated Problem(s): Severe episode of recurrent major depressive disorder, with psychotic features (CMS/HCC) - history of depression adolescence (lost father at age 13 and was taking medications) - history of self-harm and suicidal ideation - patient is not interested in pharmacological treatment - PHQ-9 improved, patient reports improvement in his mood documented in this encounter Plan of Treatment Scheduled Orders Name Type Priority Associated Diagnoses Orde r Schedule XR Foot 3+ Views Right Imaging Routine Right foot pain Expected: 11/04/2024, Expires: 11/04/2025 CBC auto differential Lab Routine Weight loss Expected: 11/04/2024 (Approximate), Expires: 11/04/2025 documented as of this encounter Visit Diagnoses Diagnosis Neck pain on right side- Primary Severe episode of recurrent major depressive disorder, with psychotic features (CMS/HCC) Transaminitis Nonspecific elevation of levels of transaminase or lactic acid dehydrogenase (LDH) Right foot pain Pain in soft tissues of limb Weight loss Loss of weight documented in this encounter Additional Health Concerns Assessment Noted Time PHQ-9 Depression Total Score: 12 025 9:29 AM EST documented as of this encounter Care Teams Electrical Prospecting Engineer Relationship Specialty Start Date End Date Celeste Ghotra MD [address] [place] [address] PCP - General Family Medicine 08/24/22 documented as of this encounter
--- OUTSIDE RECORDS SUMMARY | 2024-11-04 14:44 | XMS_ITS | Clinical Summary ---
Author Organization [facility] Address [address] [place] [phone] Phone Care Team Providers Care Chemical Production Machine Operator Name Role Phone Unavailable Primary Care Provider Unavailabl e Allergies No known active allergies Medications No known medications Active Problems Problem Noted Date Diagnosed Date Adolescent depression 01/20/2020 Overview (01/20/2020): 03/2018: Started seeing therapist from [place] in May 2017 for some depression. Started [...] be on meds Discussed BH provider at [facility] & offered referral - patient declined [...] hearing screening, GC/Chlamydia screening, Lipid screening Immunizations Immunization Administration Dates Next Due DTaP 5 05/19/2004, [...]
--- OUTSIDE RECORDS SUMMARY | 2024-11-04 14:44 | XMS_ITS | Clinical Summary ---
Author Organization [facility] Address [address] [facility] 7t [place] [address] Care Team Providers Care Wood Borer Name Role Phone Celeste Ghotra MD Primary Care Provider [phone] Allergies No known active allergies Medications * This document contains information received from the source organization and may not represent a complete record from that organization. cetirizine (ZyrTEC) 10 MG tablet Take 1 tablet (10 mg) by mouth Once per day. 30 tablet 5 01/09/2024 Active escitalopram (Lexapro) 5 MG tabletIndicatio ns:Severe episode of recurrent major depressive disorder, with psychotic features (CMS/HCC) Take 1 tablet (5 mg) by mouth in the evening. 30 tablet 1 09/24/2024 5 Active ARIPiprazole (Abilify) 10 MG tabletIndicatio ns:Severe episode of recurrent major depressive disorder, with psychotic features (CMS/HCC) Take 0.5 tablets (5 mg) by mouth in the evening. 15 tablet 1 09/24/2024 5 Active Active Problems Problem Noted Date Diagnosed Date Neck pain on right side 04/10/2024 Transaminitis 04/10/2024 Assessment & Plan (11/04/2024 2:28 PM EDT): - check lab and H. Pylori / celiac diseaes - consider revaccinating Hep B - consider US if LFT remains elevated Assessment & Plan (04/10/2024 12:48 PM EDT): [...] eye drops - will refer him to hematology specialist as requested Pain in both testicles 08/28/2023 Assessment & Plan (08/28/2023 2:40 PM EST): - about 8 months - left > right - evaluate with ultrasound - check STI Severe episode of recurrent major depressive disorder, with psychotic features 08/28/2023 Assessment & Plan (11/04/2024 2:28 PM EDT): - history of depression adolescence (lost father at age 13 and was taking medications) - history of self-harm and suicidal ideation - patient is not interested in pharmacological treatment - PHQ-9 improved, patient reports improvement in his mood Assessment & Plan (07/16/2024 9:58 AM EST): [...] referred to psychiatry services. Intake completed with [facility]. clinician will provide additional support as needed [...] Health Integration Plan Internal Follow up with I External OP therapy referral Patient Self Plan Patient to utilize skills provided in intervention , Patient to reach out to [facility] team as needed, Patient to engage in OP therapy , and Patient to reach out to [facility] as needed Assessment & Plan (08/28/2023 2:44 [...] - patient would like to see a tare worker; will refer - check lab Right wrist pain 08/28/2023 Assessment & Plan (01/10/2024 11:57 AM EDT): - chronic - likely repetition of micro-trauma - seen in [facility] ED on 11/03/23, XR negative for fracture [...] intervention , Patient to reach out to [facility] team as needed, Patient to engage in OP therapy , and Patient to reach out to [facility] as needed Lesion of skin of scalp 08/24/2022 Assessment [...] exercising; encouraged to continue practicing healthy lifestyle History of depression 08/24/20222024 Assessment & Plan (08/24/2022 3:44 PM EST): -previously tried pharmacological treatment and CBT -pt has resilience and has developed healthy coping skills Adolescent depression 01/20/20202022 Overview (08/24/2022): 03/2018: Started seeing therapist from [place] in May 2017 for some depression. Started [...] be on meds Discussed BH provider at [facility] & offered referral - patient declined & says he is feeling fine now He will call if wishing to see some one Reviewed Crisis # Encounters * This document contains information received from the source organization and may not represent a complete record from that organization. Date Type Department Care Team Description 11/04/2024 1:45 PM EDT Office Visit [address] [address] Celeste Ghotra MD Neck pain on right side (Primary Dx); Severe episode of recurrent major depressive disorder, with psychotic features (CMS/HCC); Transaminitis; Right foot pain; Weight loss 11/04/2024 Travel 11/01/[address] [address] Celeste Ghotra MD CHART PREP 10/02/2024 Patient Outreach [address] [address] Celeste Ghotra MD Care Coordination ([address] [place] telephone call outreach) 09/25/2024 Patient Outreach [address] [address] Celeste Ghotra MD Care Coordination ([address] [place] telephone call outreach) 09/06/2024 Population Health Risk Score [facility] Department [address] [place] [phone] Provider, Population Health Generic 09/05/2024 Patient Outreach [address] [address] Celeste Ghotra MD Care Coordination ([facility] -[facility] [place] telephone call outreach) 08/29/[address] [address] Celeste Ghotra MD Care Management ([facility]- chart review) 08/29/[address] [address] Celeste Ghotra MD No Show 08/29/2024 Orders Only [address] [phone] Celeste Ghotra MD Recurrent major depressive disorder, remission status unspecified (CMS/HCC) (Primary Dx) 08/23/[address] [phone] Celeste Ghotra MD chart prep 08/22/2024 Patient Outreach [facility] [address] [place], [place] [phone] Celeste Ghotra MD 08/20/2024 Patient Outreach [address] [phone] Celeste Ghotra MD Pre-visit Planning (Pre-visit planning - LVM ) 08/08/[address] [phone] Alisa Cooper MA chart prep from Last 3 Months Immunizations Name Administration [...] Mass Index 18.54 11/04/2024 2:02 PM EDT Plan of Treatment Health Maintenance Due Date Last Done Comments Family Planning (PISQ) 2015 COVID-19 Vaccine ( season) 2024 12/01/2020, 11/03/2020 Alcohol/Substance Use Screening 04/10/2025 04/10/2024 Depression Screening 07/16/2025 07/16/2024, 07/16/19 25 SDOH Screening 11/04/2025 11/04/2024 Tobacco Screening 11/04/2025 11/04/2024 DTaP/Tdap/Td Vaccines (8 - Td or Tdap) 08/24/2032 08/24/2022, 11/16/2011, 05/19/2004, Additional history exists Zoster Vaccines (1 of 2) 2050 RSV Patients and Patients Aged 60 years or older (1 - 1-dose 75+ series) 2075 Hepatitis B Vaccines Completed 02/28/2001, 2000, 2000 Pneumococcal Vaccine: Pediatrics (0 to 5 Years) and At-Risk Patients (6 to 49) Years) Aged Out 05/28/2001, 2000, 2000, Additional [...] Procedure Name Priority Date/Time Associated Diagnosis Comments HEPATITIS C AB W/REFL TO HCV RNA, QN, PCR Routine 01/09/2024 12:20 PM EDT Dysuria HIV 1/2 ANTIGEN/ANTIBODY, FOURTH GENERATION W/RFL Routine 01/09/2024 12:20 PM EDT Dysuria from Last 3 Months or Most Recently Relevant to Health Maintenance Results * Hepatitis C Antibody with Reflex to HCV, RNA, Quantitative, Real-Time PCR (01/09/2024 12:20 PM EDT) Hepatitis C Antibody Nonreactive Nonreactive [facility] Comment:Antibodies to HCV no t detected; does not exclude early acuteHCV infection. Blood Venous blood specimen / Unknown 01/09/2024 12:20 PM EDT 01/09/2024 12:50 PM EDT us Celeste Ghotra MD LAB BLOOD ORDERABLES Final Resul t [facility] [address] [place] [phone] * HIV-1/2 Antigen and Antibodies, Fourth Generation, with Reflexes (01/09/2024 12:20 PM EDT) HIV AB/AG Nonreactive Nonreactive [facility] Comment:HIV-1 p24 Ag and/or HIV-1/HIV-2 Ab not detected.A test result that is nonreactive does not exclude thepossibility of exposure to or infection with HIV-1 and/orHIV-2. Nonreactive results in this assay for individualswith prior exposure to HIV-1 and/or HIV-2 may be due toantigen and antibody levels that are below the limit ofdetection of this assay.The [employer] HIV Ag/Ab Combo assay result andsupplemental assay results should be interpreted inconjunction with the patient's clinical presentation,history and other laboratory results. If the results areinconsistent with clinical evidence, additional testing issuggested to confirm the result. Blood Venous blood specimen / Unknown 01/09/2024 12:20 PM EDT 01/09/2024 12:50 PM EDT Celeste Ghotra MD LAB BLOOD ORDERABLES Final Resul t [facility] [address] [place] [phone] [phone] from Last 3 Months or Most Recently Relevant to Health Maintenance Insurance [employer] [id number] [place] [address] C3 Advance Directives Documents on File Type Date Recorded Patient Sterile Process Tech Expl anation HealthCare Proxy 10/20/2022 Proxy Care Teams Wood Borer Relationship Specialty Start Date End Date Celeste Ghotra MD [address] [place] [phone] PCP - General Family Medicine 08/24/22
[2024-11-04 16:09] LABS: MANUAL DIFF FLAG NO
[2024-11-04 16:21] LABS: Basophils Absolute Auto 0.1 X10*3/uL (0.0-0.2); Basophils Percent Auto 1.2 % (0-2); Eosinophils Absolute Auto 0.3 X10*3/uL (0.0-0.4); Eosinophils Percent Auto 6.3 % (0-4); Hematocrit 44.8 % (42.0-52.0); Hemoglobin 15.1 g/dl (14.0-18.0); Imm Gran Abs Auto 0.02 X10*3/uL (0.00-0.03); Imm Gran Pct Auto 0.4 % (0.0-0.4); Lymphocytes Absolute Auto 1.6 X10*3/uL (1.2-4.9); Lymphocytes Percent Auto 31.5 % (20-40); Mean Corpuscular HGB Conc 33.7 g/dl (31.0-36.0); Mean Corpuscular Volume 88.9 fL (80.0-98.0); Mean Platelet Volume 10.3 fL (9.4-12.4); Monocytes Absolute Auto 0.5 X10*3/uL (0.1-1.2); Monocytes Percent Auto 8.8 % (2-11); Neutrophils Absolute Auto 2.7 x10*3/uL (2.0-8.3); Neutrophils Percent Auto 51.8 % (45-73); Platelet Count 228 X10*3/uL (160-400); Red Blood Count 5.04 X10*6/uL (4.60-5.80); Red Cell Distribution Width 12.9 % (11.0-16.0); White Blood Count 5.2 X10*3/uL (4.8-10.8)
[2024-11-04 16:51] LABS: Alanine Aminotransferase 26 U/L (0-40); Albumin Level 4.5 g/dL (3.5-5.0); Aspartate Amino Transferase 27 U/L (5-37); Bilirubin Direct 0.2 mg/dL (0.0-0.5); Bilirubin Total 0.7 mg/dL (0.0-1.0); Total Protein 7.1 g/dL (6.5-8.0)
[2024-11-04 16:54] LABS: Alkaline Phosphatase 99 U/L (39-117)
[2024-11-05 15:49] LABS: Immunoglobulin A 169 mg/dL (47-310); Transglutaminase IgA <1.0 U/mL
== END 2024-11-04 14:38 | disposition home or self-care (01) ==
LOC: HO.HHCL 14:37
PROVIDERS: Visit Provider Family Medicine
DX: M79.671 Pain in right foot (principal); R63.4 Abnormal weight loss; R10.32 Left lower quadrant pain; R79.89 Other specified abnormal findings of blood chemistry
CPT/HCPCS: 36415; 73630; 80076; 82784; 85025; 86364

== ENCOUNTER → 2024-11-04 14:57 | Outpatient (BNV) | payer MEDICAID, SELFPAY | PROVIDERS: Visit Provider Radiology Diagnostic Radiology | DX: M79.671 Pain in right foot (principal) | CPT/HCPCS: 73630 ==